=== PATIENT | male | born 1990 | race Caucasian/White ===

== ENCOUNTER 2019-04-10 14:53 | Emergency (ER) | payer BC, SELFPAY ==
[2019-04-10] VITALS (7 sets, daily range): BP systolic 116–133; BP diastolic 64–87; PULSE 76–98; RESP 14–16; TEMP 36.9–37.1; O2SAT 95–98
--- NOTE | 2019-04-10 15:23 | DI.RAD_ITS ---
EXAM: XR CHEST 2V PA LATERAL INDICATION: cough, sob, diminished BS RUL, r/o pneumonia. COMPARISON: No exams were available for comparison TECHNIQUE: 2D digital imaging was performed. FINDINGS: The heart size is normal. The lungs are well inflated and clear. No infiltrate, effusion or pneumo thorax is seen. IMPRESSION: Negative chest x-ray.
--- NOTE | 2019-04-10 15:25 | ED.GENADUL_ITS ---
Discharge Plan Disposition Patient Disposition: HOME Condition: Improving Discharge Details Chief Complaint: SOB Clinical Impression: Shortness of breath, History of asthma Primary Care Provider: Geetha Lowe ED Provider: Anu Vanessa Home Meds and New Rx's Prescriptions: Continued albuterol sulfate [Proventil HFA] 1 PUFF HFA aerosol inhaler 1 - 2 puff Inhalation DIRECTED RF: 0 fluticasone propion-salmeterol [Advair Diskus] 1 EACH blister with device 1 ea Inhalation BID Qty: 1 RF: 0 Discharge Instructions Instructions: Dyspnea (ED) Additional Instructions: Drink plenty fluids get plenty of rest. Use your albuterol inhaler as needed and directed in your Advair as directed. Follow-up with your primary care doctor next week for reevaluation. Return to the emergency department if you develop any worsening or new concerning symptoms. Discharge Data Discharge Physician: Anu Vanessa Medical Decision Making 1515 -- 28-year-old male with history of asthma presents with persistent shortness of breath for the past 2 days as well as cough with chest congestion. Vitals within normal limits. Mild decrease in breath sounds right upper lobe. Age, history presentation not consistent with PE or ACS. Differential diagnosis includes asthma exacerbation, viral syndrome, pneumonia. Will give a DuoNeb, obtain chest x-ray and check a d-dimer and reassess. 1725 --patient denies any relief. Heart rate 70s oxygen saturation 99% on room air. He demonstrates no signs of respiratory distress. Chest x-ray negative. EKG done which is unremarkable. D-dimer negative. Repeat lung exam with clear breath sounds throughout. Patient states he does feel some shortness of breath right now. Discussed also the possibility of stress or anxiety but he denies this. Will give another treatment and reassess. 1920 --patient feels better and is requesting to go home. Discussed with patient at length that this could be possibly a mild asthma exacerbation, URI, or an evolving process that is not yet evident. Patient advised to drink plenty fluids, get plenty of rest, use his albuterol as needed and Advair as directed. He is advised to follow-up with his primary care doctor and return here if worse. Medical Records Medical records reviewed: Yes I reviewed the patient's medical records. Imaging Data Radiologic Study: Radiologist's impression: XR Chest, 2 Views Exam date and time: 04/10/2019 3:25 PM Clinical history: 28 years old, male; Shortness of breath; Patient HX: Diminished bs rul; Additional info: R/O pneumonia TECHNIQUE: Imaging protocol: XR of the chest Views: 2 views. COMPARISON: No relevant prior studies available. FINDINGS: Lungs: No focal areas of consolidation. Pleural space: No pleural effusion or pneumothorax. Heart/Mediastinum: Cardiac and mediastinal silhouettes are unremarkable. Bones/joints: No acute osseus lesion or fracture. IMPRESSION: No acute cardiopulmonary pathology. HPI General Mode of arrival: ambulatory . Date/Time Provider Initiated Documentation: 04/10/19 15:04 . Limitations to Documentation: no limitations . Information obtained by: patient . HPI Narrative: Patient is a 28-year-old male with a history of asthma who presents with shortness of breath for the past 2 days. Patient also admits to cough with chest congestion but denies any sputum production. He denies fever, nausea, vomiting, abdominal pain, chest pain, ear pain, sore throat. Patient denies any recent travel, recent surgery, leg pain or swelling or known sick contacts. He states that he uses Advair twice daily and albuterol as needed for his asthma which usually helps in any case of shortness of breath but states this is not helping at this time. Patient states that at baseline he often become short of breath with eating but states this was slightly worse today. He denies any abdominal pain at any time or difficulty swallowing. Related Data Home Medications Medication Instructions Recorded Confirmed albuterol sulfate [Proventil HFA] 1 - 2 puff INHALATION DIRECTED 12/03/12 04/10/19 fluticasone propion-salmeterol 1 ea INHALATION BID #1 disk.w.dev 12/03/12 04/10/19 [Advair Diskus] Previous Rx's Medication Instructions Recorded fluticasone propion-salmeterol 1 ea INHALATION BID #1 disk.w.dev 12/03/12 [Advair Diskus] Allergies Allergy/AdvReac Type Severity Reaction Status Date / Time cefaclor [From [facility]] Allergy Unknown Unverified 12/03/12 21:22 General Stated Complaint: SOB LASHAWN: 3 Review of Systems Review of Systems ROS Unobtainable: All systems reviewed & are unremarkable except as noted in HPI and below Constitutional Constitutional: Reports as per HPI, Denies chills and Denies fever(s) Eyes Eyes: Denies blurry vision ENT Ears, Nose, Mouth, and Throat: Denies dizziness, Denies sore throat and Denies throat swelling Cardiovascular Cardiovascular: Denies chest pain and Denies dyspnea Respiratory Respiratory: Denies cough and Denies dyspnea Gastrointestinal Gastrointestinal: Denies abdominal pain, Denies diarrhea and Denies vomiting Genitourinary Genitourinary: Denies hematuria and Denies dysuria Musculoskeletal Musculoskeletal: Denies back pain and Denies numbness Integumentary/Breasts Skin/Breast: Denies lesions and Denies rash Neurologic Neurologic: Denies dizziness, Denies focal weakness and Denies numbness Allergic/Immunologic Allergic/Immunologic: Denies throat swelling [facility] Medical History Asthma (Chronic) Surgical History History of hernia repair (Chronic) Social History Smoking/Tobacco Use Status: Never Alcohol Intake: current Alcohol Intake frequency: a few times a month Drug use: Rarely Substance use type: marijuana Do you feel safe at home: Yes Do you feel safe in your relationship?: Yes Exam Const General: cooperative, healthy appearing and no acute distress HENMT Head: normal to inspection Face and sinus: normal facial exam Eyes General: appearance normal, both eyes and all related structures Pupils: PERRL EOM: EOM intact bilaterally Neck Neck: normal visual inspection and No submandibular swelling Lymphatic: no lymphadenopathy noted Chest Chest: normal inspection of the chest and no tenderness Resp Effort & Inspection: normal respiratory effort and able to speak in complete sentences Other: mild decrease in breath sounds right upper lobe. Remainder of lungs clear. No wheezing or rhonchi. Cardio Rate: regular rate Rhythm: regular rhythm GI Inspection: normal to inspection Palpation: soft, not firm, not rigid and nontender Auscultation: normal bowel sounds Skin General skin exam: no rashes or lesions noted Neuro General: alert, awake and oriented x3 Cognition: normal cognition Speech: speech normal Motor: muscle tone normal throughout Sensory Exam: no sensory deficits noted Extrem General: normal to inspection, full ROM, normal capillary refill, no calf tenderness bilaterally and no edema Psych Appearance: grossly normal Mental Status: mental status grossly normal Speech and Movement: speech and movement normal Affect: normal affect Course Vital Signs Vital signs: Vital Signs Temperature 98.8 F 04/10/19 14:59 Pulse 76 04/10/19 14:59 Respiratory Rate 16 04/10/19 14:59 Blood Pressure 133/64 04/10/19 14:59 Pulse Oximetry 98 04/10/19 14:59 Temperature 98.8 F 04/10/19 14:59 Temperature Source Skin 04/10/19 14:59 Pulse 76 04/10/19 14:59 Respiratory Rate 16 04/10/19 14:59 Respiratory Effort Non-Labored 04/10/19 15:03 Blood Pressure 133/64 04/10/19 14:59 Blood Pressure Position Sitting 04/10/19 14:59 Pulse Oximetry 98 04/10/19 14:59 Oxygen Delivery Method Room Air 04/10/19 14:59 Oxygen Flow Rate 0 04/10/19 14:59 Pain Level 0 04/10/19 14:59
[2019-04-10] MEDS: Albuterol/Ipratropium 3 ML UPD VIAL UPD (15:59)
[2019-04-10 16:31] LABS: D-Dimer 92 ng/mlFEU (<500)
--- NOTE | 2019-04-10 16:50 | DI.VRAD_ITS ---
PROCEDURE INFORMATION: Exam: XR Chest, 2 Views Exam date and time: 04/10/2019 3:25 PM Clinical history: 28 years old, male; Shortness of breath; Patient HX: Diminished bs rul; Additional info: R/O pneumonia TECHNIQUE: Imaging protocol: XR of the chest Views: 2 views. COMPARISON: No relevant prior studies available. FINDINGS: Lungs: No focal areas of consolidation. Pleural space: No pleural effusion or pneumothorax. Heart/Mediastinum: Cardiac and mediastinal silhouettes are unremarkable. Bones/joints: No acute osseus lesion or fracture. IMPRESSION: No acute cardiopulmonary pathology. Dictated and Authenticated by: Jeison Jewell MD. Ordering:JONG Brennan MD
[2019-04-10] MEDS: Albuterol 2.5 MG/3 ML INH SOLN VIAL UPD (17:55)
== END 2019-04-10 19:55 | disposition home or self-care (01) ==
PROVIDERS: Emergency Provider Physician Assistant; PCP Nurse Practitioner Family
DX: J45.901 Unspecified asthma with (acute) exacerbation (principal); R06.02 Shortness of breath
CPT/HCPCS: 93005; 94640; 99284; 71046; 85379; 93010; J7613; J7620

== ENCOUNTER 2019-09-12 13:22 | Outpatient (REF) | payer BC, SELFPAY ==
[2019-09-12 20:36] LABS: TSH (W/Ref FT4) 0.46 uIU/mL (0.36-3.74)
== END 2019-09-12 13:42 ==
LOC: NCHCN 13:22
PROVIDERS: PCP Nurse Practitioner Family; Visit Provider Nurse Practitioner Family
DX: R35.0 Frequency of micturition (principal); J45.30 Mild persistent asthma, uncomplicated
CPT/HCPCS: 84443; 87086

== ENCOUNTER 2019-09-19 08:53 | Outpatient (REF) | payer BC, SELFPAY | END 2019-09-19 09:13 | LOC: NCHCN 08:53 | PROVIDERS: PCP Nurse Practitioner Family; Visit Provider Nurse Practitioner Family | DX: R35.0 Frequency of micturition (principal) | CPT/HCPCS: 87086 ==

== ENCOUNTER 2019-11-14 09:28 | Outpatient (CLI) | payer BC, SELFPAY ==
[2019-11-15 21:03] LABS: COVID-19 RT-PCR UVMMC Result Negative (Negative)
== END 2019-11-14 09:48 ==
PROVIDERS: Surgery; PCP Nurse Practitioner Family; Visit Provider Nurse Practitioner Family
DX: Z11.59 Encounter for screening for other viral diseases (principal)
CPT/HCPCS: U0003

== ENCOUNTER 2019-12-14 08:16 | Outpatient (REF) | payer BC, SELFPAY ==
[2019-12-18 16:44] LABS: Chlamydia Result Negative (Negative); GC Result Negative (Negative)
== END 2019-12-14 08:36 ==
LOC: NCHCN 08:16
PROVIDERS: PCP Nurse Practitioner Family; Visit Provider Nurse Practitioner Family
DX: R35.0 Frequency of micturition (principal); Z11.3 Encounter for screening for infections with a predominantly sexual mode of transmission
CPT/HCPCS: 87491; 87591

== ENCOUNTER 2020-01-08 07:16 | Outpatient (CLI) | payer BC, SELFPAY ==
[2020-01-10 17:23] LABS: COVID-19 RT-PCR Result NEGATIVE (Negative)
== END 2020-01-08 07:36 ==
PROVIDERS: PCP Nurse Practitioner Family; Visit Provider Surgery
DX: Z11.59 Encounter for screening for other viral diseases (principal)
CPT/HCPCS: U0003

== ENCOUNTER 2020-01-11 08:05 | Day surgery (SDC) | payer BC, SELFPAY ==
--- NOTE | 2020-01-10 23:27 | W.PM.HP.N ---
Date of service: 01/11/20 Time of Service: 09:00 Assessment and Plan Assessment and plan (1) Chronic GERD: Status: Acute Assessment and plan: Risks: Informed consent is obtained for the procedural (explained in simple layman's terms that the pt and/or family could understand) explaining risks vs benefits and alternatives to the procedure and consequences if we do not do the procedure and need/rational for the procedure. Risks include but are not limited to:bleeding, infection, perforation of colon. This would necessitate emergency surgery to repair the damage w/ possible ostomy; and other associated complications w/ the required surgery. Also complications of anesthesia including aspiration,CA/CVA/. (2) Asthma: Status: Chronic History of Present Illness Consults Consult date: 01/11/20 Narrative: t has what he describes as a tightness in his chest. thinks it started in feb last year. Tends to happen after he eats. doesn't correlate w/ any certain foods. doesn't eat spicy foods. lying down doens't seem to bother him. feels like a burning. when it is going on- feels like he needs to clear his throat. denies wet burps. belching+. sometimes feels bloated no abdominal pain. bowels are reagula. pt goes twice a dya. this is nl for him coffee- none. soda- couple times a week. smoker- no. etoh- once/week. nsaids ibuprofen couple times a week. occ has blood when he wipes. someimes has blood in saliva. has asthma and lots problems w/ allergies. pt is on both pepcid and omeprazole. has been on pepcid x 2m and omeprazole x1m. He thinks its a little better on the meds- maybe 30% better. no signif dental issues. doesn't wake him up at night. no choking. occ pain or diff swallowing- feels constricted. Did have some wt loss- but has gained it back PShx hernia. anethsia- no problems. Patient has been having problems with heartburn and poorly controlled asthma. He did see pulmonary and they thought it was due to an extrapulmonary source. Patient is here today for an EGD. Patient was seen and examined today on 723. He was started on 20 mg omeprazole once a day and Pepcid by his PCP. He thinks his symptoms are 80% controlled. He still has some tightness in his throat. He is a non-smoker. He did see pulmonary and his inhalers were adjusted. He thinks it has helped his asthma somewhat. He has not been in the emergency room. He has not started any other medications. Today he denies any chest pain or shortness of breath. He has no fever or chills. He has no productive cough. Is not been exposed to Cobin that he is aware of. We discussed the procedure today and risks versus benefits and he agrees to proceed. He is asked for risk for anesthesia. Review of Systems All systems reviewed & are unremarkable except as noted in HPI and below PFSH Medical History Allergic rhinitis (Acute) Asthma (Chronic) Belching (Acute) Bleeding from the nose (Acute) Pt. states this is related to the frequent belching/discomfort. Pt. states he recently had a PFT, which yielded normal results. Chest discomfort (Acute) H/O urinary frequency (Acute) Hearing loss (Acute) Pt. denies this dx. Pt. reported unusal occasional redness and warmth on his ears but never affected his hearing Heartburn (Acute) Preop testing (Acute) Surgical History History of hernia repair (Chronic) Social History Smoking/Tobacco Use Status: Never Alcohol Intake: current Alcohol Intake frequency: a few times a month Alcohol type: beer and hard liquor Drug use: Rarely Substance use type: marijuana Current gender identity: male Do you feel safe at home: Yes Do you feel safe in your relationship?: Yes Meds Home Medications and Allergies Home Medications Medication Instructions Recorded Confirmed Type albuterol sulfate [Proventil HFA] 1 - 2 puff INHALATION DIRECTED 12/03/12 01/09/20 History cetirizine 10 mg tablet 10 mg PO DAILY 10/18/19 01/11/20 History famotidine 20 mg tablet 20 mg PO DAILY 10/18/19 01/11/20 History fluticasone 250 mcg-salmeterol 50 1 inh IH BID 10/18/19 01/11/20 History mcg/dose blistr powdr for inhalation montelukast 10 mg tablet 10 mg PO DAILY PRN 10/18/19 01/11/20 History tiotropium bromide 18 mcg capsule 1 cap IH DAILY 10/18/19 11/10/19 History with inhalation device fluticasone propionate 50 1 spray JUAN BID 10/30/19 01/09/20 History mcg/actuation nasal spray,suspension omeprazole 20 mg capsule,delayed 20 mg PO DAILY 10/30/19 01/11/20 History release sertraline 25 mg tablet 25 mg PO DAILY 10/30/19 01/11/20 History fluticasone furoate 27.5 1 spray JUAN DAILY 11/09/19 01/09/20 History mcg/actuation nasal spray,suspension Allergies Allergy/AdvReac Type Severity Reaction Status Date / Time cefaclor [From [facility]] Allergy Unknown Pt unsure Unverified 01/11/20 08:19 Exam Const General: cooperative, healthy appearing, comfortable, no acute distress, well developed and well groomed Nutritional Appearance: average body habitus and well nourished Orientation: alert, awake and oriented x3 HENMT Head: normal to inspection, normocephalic and atraumatic Ears: hearing grossly normal bilaterally and external ears normal General nose exam: external nose normal Face and sinus: normal facial exam and sinuses nontender Mouth: oral mucosae normal, lip normal, tongue normal and moist mucous membranes Teeth and gingiva: dentition normal Eyes General: appearance normal, both eyes and all related structures Conjunctivae: conjunctivae normal Sclera: sclerae normal Pupils: PERRL Neck Neck: normal visual inspection and full ROM Chest Chest: normal inspection of the chest Resp Effort & Inspection: normal respiratory effort, able to speak in complete sentences, no cough, no nasal flaring, not tachypneic and no use of accessory muscles Auscultation: clear to auscultation bilaterally, no rales, no rhonchi and no wheezes Cardio Jugular venous pressure: no JVD Rate: regular rate Rhythm: regular rhythm GI Inspection: normal to inspection, no edema and non-distended Palpation: soft, no masses, nontender and No ascites Auscultation: normal bowel sounds Skin General skin exam: no rashes or lesions noted Trauma: no lacerations or abrasions Neuro General: patient alert, patient oriented x3, oriented, gait normal, moves all extremities, no focal motor deficits and CN's II-XI intact bilaterally Cognition: normal cognition Speech: speech normal Gait: normal gait Motor: muscle tone normal throughout Extrem General: normal to inspection, full ROM and no clubbing, cyanosis or edema Psych Appearance: grossly normal and well kempt Mental Status: mental status grossly normal Speech and Movement: speech and movement normal Affect: normal affect COVID-19 Screening Have you,or household,traveled outside [place] in last 14 days?: No Had IN PERSON contact w/suspected or confirmed C-19 person: No
[2020-01-11 08:15] VITALS: BP 134/74; PULSE 77; RESP 16; TEMP 36.6; O2SAT 100
[2020-01-11] MEDS: Lactated Ringers 1,000 ML 100 ML IV (08:39)
--- NOTE | 2020-01-11 09:56 | STOM_PTH ---
PATIENT: Sacha Davies LOC: [facility] U#:[id number] AGE/SX: 29/M ROOM: RE01/11/[address]: Leigh Robles : 1990 BED: DIS: 01/11/2020 SPEC #: [id number] RECD: 01/11/20 12:40 STATUS: JEF RE #: [id number] SELWYN: 01/11/20 09:[address]: Leigh Robles DEPT: Surgical Specimen RECD BY: Dee Dee Jhaveri ENTERED: 01/11/20 12:43 SP TYPE: STOMACH OTHR DR: Geetha Lowe Tissues: 1 - BIOPSY BOWEL 2 - STOMACH BIOPSY 3 - STOMACH BIOPSY 4 - ESOPHAGUS BIOPSY 5 - ESOPHAGUS BIOPSY Procedures: GROSS AND MICRO LEVEL 4 Comments: [id number]
--- NOTE | 2020-01-11 10:02 | PDOC.DSDIS_ITS ---
Discharge Plan Disposition Patient Disposition: HOME Condition: Good Discharge Details Reason For Visit: stomach scope Attending Provider: Leigh Robles Primary Care Provider: Geetha Lowe Home Meds and New Rx's Prescriptions: New pantoprazole [Protonix] 40 mg tablet,delayed release (DR/EC) 40 mg PO DAILY Qty: 30 RF: 12 Continued fluticasone propionate [Flonase Allergy Relief] 50 mcg/actuation spray,suspen catalino 1 spray JUAN BID RF: 0 sertraline 25 mg tablet 25 mg PO DAILY RF: 0 Flonase Sensimist 27.5 mcg/actuation spray,suspension 1 spray JUAN DAILY RF: 0 cetirizine [Zyrtec] 10 mg tablet 10 mg PO DAILY RF: 0 Spiriva with HandiHaler 18 mcg capsule, w/inhalation device 1 cap IH DAILY RF: 0 montelukast [Singulair] 10 mg tablet 10 mg PO DAILY PRNRF: 0 fluticasone propion-salmeterol [Advair Diskus] 250-50 mcg/dose blister with device 1 inh IH BID RF: 0 albuterol sulfate [Proventil HFA] 1 PUFF HFA aerosol inhaler 1 - 2 puff Inhalation DIRECTED RF: 0 Discontinued omeprazole 20 mg capsule,delayed release(DR/EC) 20 mg PO DAILY RF: 0 famotidine 20 mg tablet 20 mg PO DAILY RF: 0 Discharge Instructions Additional Instructions: Findings: relatively normal- pd biopsy results Continue with lifestyle modifications: no alcohol, tobacco products, Aspirin or NSAID's (ibuprofen, Motrin, Naprosyn, aleve, etc), soda pop/any carbonated beverages, caffeine (including tea & chocolate), and acidic foods, (tomatoes, citrus, onions, peppermints) spicy foods. Do not lie down for 30 minutes after eating, and do not eat 2 hours prior to bedtime. Avoid wearing tight fitting clothing/ belts stop omprazole/pepcid. start protonix Follow up:3-4 wks Please call if you develop: fevers >101.5 Nausea or Vomiting Abdominal pain that is not transient DAY SURGERY UNIT POST COLONOSCOPY INSTRUCTIONS 1. Because there will be medication in your system for the next 24 hours, you may feel a little sleepy. Your coordination will be affected. Therefore: a. Do not drive or operate dangerous equipment for 24 hours. b. Do not drink alcohol beverages for 24 hours (not even beer). c. Plan to go home and rest for the day. 2. Generally there are no restrictions on your activity after a day or so has gone by, but you may feel a bit fatigued for a few days. 3 After you arrive home you may have a light meal and return to a normal diet as you can tolerate it without feeling sick to your stomach. 4. After surgery, you may feel pain or discomfort. This should be only transient , but if it persists please contact your doctor. 5. If there are any questions regarding the findings of your procedure, please feel free to contact your doctor. 6. If you are unable to contact your doctor with a problem, contact the hospital at [phone]. 7. Continue all your regular medications unless directed otherwise. I understand the above instructions and have no questions. Signature of Patient or Responsible Adult Escort Date/Time Name of Responsible Adult Escort Signature of Nurse Date/Time Activity:: no liting over 20 #'s or strenuous activity x 24 hrs. Diet:: Small light meals x24 hours Discharge Orders Discharge Orders: Discharge Order (Routine); Ordered 01/11/20 Ordered By: Leigh Robles DS: Diagnosis Discharge Diagnosis (1) Chronic GERD: Status: Acute (2) Asthma: Status: Chronic
[2020-01-11 10:40] VITALS: BP 124/78; PULSE 72; RESP 16; TEMP 36.4; O2SAT 99
--- NOTE | 2020-01-17 12:25 | W.PM.ENDDOP ---
Date of service: 01/17/20 Time of Service: 12:25 Endoscopy Report DATE OF PROCEDURE: 01/17/20 PRE-OP DIAGNOSIS: possible reflux contributing to asthma POST-OP DIAGNOSIS: same PROCEDURE: egd w/ bx. SURGEON: Leigh Robles ANESTHESIA: GETA ESTIMATED BLOOD LOSS: 1 COMPLICATIONS: None DISPOSITION: same day PROCEDURE DESCRIPTION: After informed consent was obtained the patient was take to the procedure room and placed in a supine position. Monitors were applied and a time out was done. The patients name, date of , procedure type, allergies to medications and metal in their body was reviewed. A bite block was placed and the patient was sedated. Once sedated and comfortable the gastroscope was advanced through the oropharynx which was grossly normal into the esophagus. The proximal and mid-esophagus were nl. In the distal esophagus there was nl noted. The scope was advanced into the stomach and through the pylorus into the 3rd portion of the duodenum. The duodenum was noted to be nl. Biopsies were done duodenal bulb, antrum, greater., GE junction, distal esophagus. All specimens are retrieved and no bleeding is noted. This is essentially a normal exam.. The scope was retracted back into the stomach and biopsies were done to rule out H. pylori. There were no ulcers. The scope was retroflexed. The cardia and fundus were noted to be normal. There is no hiatal hernia noted. The scope was retracted back into the esophagus and biopsies were done of the GE junction to rule out Hernadez's. The Z line was regular. The scope was removed and the patient was woken up and taken back to [facility] in stable condition. Follow up:
== END 2020-01-11 11:10 | disposition home or self-care (01) ==
PROVIDERS: PCP Nurse Practitioner Family; Visit Provider Surgery
PROC: 0DJ68ZZ Inspection of Stomach, Via Natural or Artificial Opening Endoscopic (ICD-10-PCS; CPT 43235; principal; 2020-01-11 09:30)
DX: J45.909 Unspecified asthma, uncomplicated; K31.89 Other diseases of stomach and duodenum; K21.0 Gastro-esophageal reflux disease with esophagitis
CPT/HCPCS: 43239; 88305; NC; J2001

== ENCOUNTER 2020-03-25 07:32 | Outpatient (CLI) | payer BC, SELFPAY ==
[2020-03-27 02:55] LABS: Patient Race White; SARS-CoV-2 RNA Undetected (Undetected); SARS-CoV-2 Specimen Source Nasopharynx
== END 2020-03-25 07:52 ==
PROVIDERS: PCP Nurse Practitioner Family; Visit Provider Family Medicine
DX: Z20.828 Contact with and (suspected) exposure to other viral communicable diseases (principal)
CPT/HCPCS: U0003

== ENCOUNTER 2020-11-04 16:19 | Outpatient (REF) | payer BC, SELFPAY ==
[2020-11-04 22:00] LABS: Anion Gap 10.5 mmol/L (3-11); BUN 13 mg/dL (7-18); CO2 27.5 mmol/L (21.0-32.0); CREATININE 0.8 mg/dL (0.70-1.30); Calcium 9.4 mg/dL (8.5-10.1); Chloride 104 mmol/L (98-107); Glucose 89 mg/dL (74-106); Magnesium 1.8 mg/dL (1.8-2.4); Sodium 142 mmol/L (136-145); TSH (W/Ref FT4) 0.81 uIU/mL (0.36-3.74); Vitamin B12 270 pg/mL (193-986)
== END 2020-11-04 16:20 | disposition home or self-care (01) ==
LOC: NCHCN 16:19
PROVIDERS: PCP Nurse Practitioner Family; Visit Provider Nurse Practitioner Family
DX: K30 Functional dyspepsia (principal); R61 Generalized hyperhidrosis; F41.8 Other specified anxiety disorders; F60.5 Obsessive-compulsive personality disorder; J30.9 Allergic rhinitis, unspecified; J45.30 Mild persistent asthma, uncomplicated
CPT/HCPCS: 80048; 82607; 83735; 84443

== ENCOUNTER 2021-04-28 20:00 | Outpatient (REF) | payer BC, SELFPAY | END 2021-04-28 20:01 | disposition home or self-care (01) | LOC: LBN 20:00 | PROVIDERS: PCP Nurse Practitioner Family; Visit Provider Urology | DX: Z31.41 Encounter for fertility testing (principal) | CPT/HCPCS: 89240; 89310 ==

== ENCOUNTER 2021-06-03 15:04 | Outpatient (REF) | payer BC, SELFPAY ==
[2021-06-05 12:45] LABS: Acrosom Defect 4.5 %; Appearance Normal; Container Type 50 mL Conical; Head Shape Abnormal 24.5 %; Midpiece Defect 21.5 %; Motile/Ejaculate 102.8 x10(6) (>=9.0); Motile/mL 41.1 x10(6) (>=6.0); Motility 59 % (>=40); Semen Volume 2.5 mL (>=1.5); Sperm/mL 69.7 x10(6) (>=15.0); Study Type Semen; Tail Defect 41.5 %
== END 2021-06-03 15:05 | disposition home or self-care (01) ==
LOC: LBN 15:04
PROVIDERS: PCP Nurse Practitioner Family; Visit Provider Obstetrics & Gynecology
DX: Z31.41 Encounter for fertility testing (principal)
CPT/HCPCS: 89240; 89310

== ENCOUNTER 2021-11-06 10:38 | Outpatient (REF) | payer BC, SELFPAY ==
[2021-11-07 11:35] LABS: COVID-19 RT-PCR UVMMC Result Negative (Negative)
== END 2021-11-06 10:39 | disposition home or self-care (01) ==
LOC: LBN 10:38
PROVIDERS: PCP Nurse Practitioner Family; Visit Provider Physician Assistant Medical
DX: J02.9 Acute pharyngitis, unspecified (principal); Z20.822 Contact with and (suspected) exposure to COVID-19
CPT/HCPCS: U0003; 87070

== ENCOUNTER 2023-12-28 15:47 | Outpatient (REF) | payer BC, SELFPAY ==
[2023-12-28 21:43] LABS: Hemoglobin A1C 5.4 % (<5.7)
[2023-12-28 21:44] LABS: Calculated LDL 99 mg/dL (<100); Cholesterol 197 mg/dL (<200); HDL Cholesterol 59 mg/dL (40-60); Triglyceride 198 mg/dL (<150)
== END 2023-12-28 15:48 | disposition home or self-care (01) ==
LOC: NCHCN 15:47
PROVIDERS: PCP Nurse Practitioner Family; Visit Provider Nurse Practitioner Family
DX: E66.9 Obesity, unspecified (principal)
CPT/HCPCS: 80061; 83036

== ENCOUNTER 2024-02-14 18:14 | Outpatient (REF) | payer BC, SELFPAY ==
--- NOTE | 2024-02-14 13:52 | SKI_PTH ---
PATIENT: Sacha Davies LOC: [facility]#:[id number] AGE/SX: 33/M ROOM: RE02/14/[address]: Geetha Lowe : 1990 BED: DIS: 02/14/2024 SPEC #: [id number] RECD: 02/15/24 12:33 STATUS: JEF REAdi #: [id number] SELWYN: 02/14/24 13:[address]: Geetha Lowe DEPT: Surgical Specimen RECD BY: Dee Dee Jhaveri Tissues: 1 - SKIN BIOPSY(SHAVE/PUNCH) Procedures: SKIN LEVEL 4 Comments: [id number]
--- OUTSIDE RECORDS SUMMARY | 2024-02-14 18:19 | XMS_ITS | Encounter Summary ---
Author Organization [facility] Address [address] [place] [address] Care Team Providers Care Medical Assistant Internal Medicine Name Role Phone Gilberto Jacome MD Primary Care Provider [phone] Geetha Lowe APRN Primary Care Provider [phone] Encounter Details Date Type Department Care Team (Late Contact Info) Description 11/14/2019 Lab Requisition [facility] Pathology & Laboratory Medicine - [facility] [address], [place] [address] Outr Resulting Lab, Provider Social History Tobacco Use Types Packs/Day Years Used Date Smoking Tobacco: Never Assessed Sex and Gender Information Value Date Recorded Sex Assigned at Not on file Gender Identity Male 04/11/2021 18:27 EDT Sexual Orientation Not on file documented as of this encounter Plan of Treatment Not on file documented as of this encounter Procedures Procedure Name Priority Date/Time Associated Diagnosis Comments ZZCOVID-19 TEST [facility] LAB PCR Today 11/14/2019 11:32 EDT COVID-19 TESTING Routine 11/14/2019 11:3 2 EDT documented in this encounter Results * COVID-19 TEST [facility] LAB PCR (11/14/2019 11:32 EDT) Swab ENTIRE NASOPHARYNX / Unknown 11/14/2019 11:32 EDT 11/14/2019 15:33 EDT Provider Outr Resulting Lab MICROBIOLOGY - GENERAL ORDERABLES Performing Organization Address City/[facility] Co de Phone Number [facility] [address] [place] [address] * COVID-19 TESTING (11/14/2019 11:32 EDT) COVID-19 rt-PCR Result Negative Negative 11/15/2019 20:58 EDT [facility] Comment: Negative results do not preclude 2019-nCoV infection and should not be used as the sole basis for treatment or other patient management decisions. Negative results must be combined with clinical observations, patient history, and epidemiological information. This test was developed and its performance characteristics determined by [facility]. It has not been cleared or approved by the US Food and Drug Administration. FDA does not require this test to go through premarket FDA review. This test is used for clinical purposes. It should not be regarded as investigational or for research. This laboratory is certified under the Clinical Laboratory Improvement Amendments (CLIA) as qualified to perform high complexity clinical laboratory testing. This test is based on the CDC COVID-19 Emergency Use Authorization (EUA) assay, with minor modification as defined by the FDA Performed on the [employer] 7500 Fast. Performing Lab AB [address] [facility] Lab 11/15/2019 20:58 EDT [facility] Swab ENTIRE NASOPHARYNX / Unknown 11/14/2019 11:32 EDT 11/14/2019 15:33 EDT Provider Outr Resulting Lab MICROBIOLOGY - GENERAL ORDERABLES Performing Organization Address City/[facility] Co de Phone Number [facility] [address] [place] [address] documented in this encounter Visit Diagnoses Not on filedocumented in this encounter Care Teams Medical Assistant Internal Medicine Relationship Specialty Start Date End Date Gilberto Jacome MD [address] [place] [address] PCP - General 02/25/11 04/10/21 Geetha Lowe APRN [address] [place] [id number] PCP - General 04/11/21 documented as of this encounter
--- OUTSIDE RECORDS SUMMARY | 2024-02-14 18:19 | XMS_ITS | Encounter Summary ---
Author Organization [facility] Address [address] [place] [address] Care Team Providers Care Sustain Engineer Name Role Phone None, Provider Primary Care Provider Unavailabl e Reason for Visit * Reason Comments Epistaxis Pt to the emergency department with nosebleed. States that this started approx 45 minutes prior to arrival. States that he noted a sharp headache just prior to onset of headache. Encounter Details Date Type Department Care Team ([facility] Contact Info) Description 10/03/2010 14:36 EDT - 10/03/2010 15:22 EDT Emergency [facility] Emergency Department - Main [address] [address] Emergency, MD Trace Bleeding nose Discharge Disposition: Home or Self Care Social History Tobacco Use Types Packs/Day Years Used Date Smoking Tobacco: Former Alcohol Use Standard Drinks/Week Comments Yes 0 (1 standard drink = 0.6 oz pur e alcohol) Sex and Gender Information Value Date Recorded Sex Assigned at Not on file Gender Identity Male 04/11/2021 18:27 EDT Sexual Orientation Not on file documented as of this encounter Last Filed Vital Signs Vital Sign Reading Time Taken Comments Blood Pressure 117/52 10/03/2010 1445 EDT Pulse - - Temperature 35.5 ??C (95.9 ??F) 10/03/2010 1444 EDT Respiratory Rate 16 10/03/2010 1444 EDT Oxygen Saturation 99% 10/03/2010 1444 EDT Inhaled Oxygen Concentration - - Weight 59 kg (130 lb) 10/03/2010 1444 EDT Height 165.1 cm (5' 5) 10/03/2010 1444 EDT Body Mass Index 21.63 10/03/2010 1444 EDT documented in this encounter Discharge Instructions * Attachments The following attachments cannot be sent through Care Everywhere. * NOSEBLEEDS: AFTER YOUR VISIT TO THE EMERGENCY ROOM ([facility]) documented in this encounter Medications at Time of Discharge Medication Sig Dispensed Refills Start Date End Date fluticasone-salmeterol (ADVAIR) 100-50 mcg/Dose diskus inhaler Inhale 1 Puff as directed every 12 hours. fexofenadine (WENDI) 60 mg tablet Take 60 mg by mouth daily. 02/09/2011 documented as of this encounter Discharge Disposition Disposition Code Departure Means Destination Home or Self Care Walk-out Home documented in this encounter ED Notes * Joaquin Cason Jr., ROB - 10/03/2010 1515 EDT DOS: 10/03/2010 Chief Complaint Patient presents with ??? Epistaxis Pt to the emergency department with nosebleed. States that this started approx 45 minutes prior to arrival. States that he noted a sharp headache just prior to onset of headache. The patient is a 20 y.o. male who presents today with Epistaxis HPI Comments: Patient here for a resolved nose bleed, is concerned because it bled for approximately 45 minutes, he also states he has pain in his right jaw and he opens and closes his mouth, this started 3 days prior The history is provided by the patient. Epistaxis This is a new problem. The current episode started less than 1 hour ago. The problem occurs constantly. The problem has been resolved. The bleeding has been from the left nare. He has tried applying pressure for the symptoms. The treatment provided significant relief. His past medical history is significant for colds. His past medical history does not include bleeding disorder, sinus problems, allergies, nose-picking or frequent nosebleeds. Review of Systems Constitutional: Negative for fever, chills and fatigue. HENT: Positive for nosebleeds, rhinorrhea, sneezing and postnasal drip. Negative for facial swelling, neck pain, dental problem and sinus pressure. Eyes: Negative for photophobia and visual disturbance. Respiratory: Negative for cough, chest tightness and shortness of breath. Cardiovascular: Negative for chest pain. Gastrointestinal: Negative for nausea, vomiting, abdominal pain and diarrhea. Musculoskeletal: Negative for back pain and joint swelling. Skin: Negative for color change. Neurological: Negative for dizziness and numbness. Psychiatric/Behavioral: Negative for behavioral problems. Past Medical History Diagnosis Date ??? Asthma History reviewed. No pertinent past surgical history. Allergies Allergen Reactions ??? Ceclor (Cefaclor) History Substance Use Topics ??? Smoking status: Former Smoker ??? Smokeless tobacco: Not on file ??? Alcohol Use: Yes History reviewed. No pertinent family history. Vital Signs Temp: 35.5 ??C (95.9 ??F) Temp src: Tympanic Heart Rate: 82 BPM Resp: 16 SpO2: 99 % SpCO: 0 % BP: 117/52 mmHg BP Device: BP Machine Patient Position: Sitting BP Cuff Location: Right arm O2 Device: None (Room air) Physical Exam Nursing note and vitals reviewed. Constitutional: He appears well-developed and well-nourished. HENT: Head: Normocephalic and atraumatic. Right Ear: External ear normal. Left Ear: External ear normal. Nose: Nose normal. Bilateral there is swelling to the nasal turbinates, no bleeding seen, Eyes: Conjunctivae are normal. Pupils are equal, round, and reactive to light. Right eye exhibits no discharge. Left eye exhibits no discharge. Neck: Normal range of motion. Neck supple. No tracheal deviation present. Cardiovascular: Normal rate, regular rhythm and normal heart sounds. Pulmonary/Chest: Effort normal and breath sounds normal. No respiratory distress. Abdominal: Soft. No tenderness. Musculoskeletal: Normal range of motion. Neurological: He is alert. He has normal strength. He is not disoriented. No sensory deficit. Skin: Skin is warm and dry. No rash noted. No areas of ecchymosis Psychiatric: He has a normal mood and affect. Radiology orders: None Procedures ED Course: A medical screening exam was performed. Disposition: Discharged patient not bleeding prior to discharge, patient's symptoms of right TMJ pain did not appear to be a cause of the bleeding, patient has had URI symptoms with runny nose and sneezing for last weekend, DC home The patient's pain was managed to an adequate level weighing risk vs. benefit of further medications. Upon departure from the Emergency Department, the patient's pain was 0 on a zero to ten scale. Condition at departure from the Emergency Department: Improved Discharge Prescriptions New Prescriptions No Discharge Prescriptions for this patient MDM 1. Bleeding nose (784.7B) PCP: NO PCP Cesar Del Castillo 10/03/2010 15:19 * Delmi Monroy RN - 10/03/2010 1502 EDT Brought back to ED 2 room 40 for eval. No active bleeding. documented in this encounter Miscellaneous Notes * Scanned Note-Null - Inpatient, Physician - 10/03/2010 0000 EDT documented in this encounter Plan of Treatment Not on file documented as of this encounter Visit Diagnoses Diagnosis Bleeding nose Epistaxis documented in this encounter Care Teams Sustain Engineer Relationship Specialty Start Date End Date None, Provider PCP - General 05/30/09 02/08/11 documented as of this encounter
--- OUTSIDE RECORDS SUMMARY | 2024-02-14 18:19 | XMS_ITS | Clinical Summary ---
Author Organization [facility] Address [facility] [place] [address] Care Team Providers Care Contact Lens Blocker Name Role Phone Geetha Lowe APRN Primary Care Provider [phone] Allergies Active Allergy Reactions Criticality Noted Date Comments Cefaclor 03/07/2015 Medications Medication Sig Dispensed Refills Start Date End Date Status ADVAIR DISKUS 250-50 mcg/dose Disk with Device inhale 1 dose by mouth twice a day 1 09/02/2018 Active loratadine (CLARITIN) 10 mg Tablet Take 1-3 tablets by mouth every day for itching/hives 90 tablet 2 10/11/2018 Active Active Problems Problem Noted Date Diagnosed Date Tinea pedis of both feet 03/07/2015 Tinea unguium 03/07/2015 Social History Tobacco Use Types Packs/Day Years Used Date Smoking Tobacco: Never Smokeless Tobacco: Never Sex and Gender Information Value Date Recorded Sex Assigned at Not on file Gender Identity Not on file Sexual Orientation Not on file Plan of Treatment Health Maintenance Due Date Last Done Comments HIV screen 2008 Hepatitis C Screening 2008 Hepatitis B vaccine (0-59 yrs) (1) 2009 Tdap adult 2009 Tetanus vaccine 2009 Covid-19 Vaccine (2022-24 season) 2023 Influenza (Flu) vaccine (1 o f 1 - Influenza standard series) 02/20/2024 Care Teams Contact Lens Blocker Relationship Specialty Start Date End Date Geetha Lowe APRN [address] [place], [place] [id number] PCP - General 10/16/14
--- OUTSIDE RECORDS SUMMARY | 2024-02-14 18:19 | XMS_ITS | Encounter Summary ---
Author Organization [facility] Address [address] [place] [address] Care Team Providers Care Product Marketing Analyst Name Role Phone Geetha Lowe ROB Primary Care Provider [phone] Encounter Details Date Type Department Care Team ([facility] st Contact Info) Description 04/11/2021 Prep for Procedure [facility] Infectious Disease - [address] [id number] Yesica Elizabeth MD [address] [facility], [address] [place] [address] Social History Tobacco Use Types Packs/Day Years Used Date Smoking Tobacco: Never Smokeless Tobacco: Never Alcohol Use Standard Drinks/Week Comments Yes 0.8 (1 standard drink = 0.6 oz p ure alcohol) Interpersonal Safety Answer Date Record ed Physically Hurt Never 02/04/2020 Verbally Threaten Not on file 02/04/2020 Sex and Gender Information Value Date Recorded Sex Assigned at Not on file Gender Identity Male 04/11/2021 18:27 EDT Sexual Orientation Not on file documented as of this encounter H&P Notes * Yesica Elizabeth MD - 04/11/2021 1236 EDT I have been asked to order sars-cov-2 monoclonal antibodies on behalf of the patient's PCP as the PCP does not have infusion privileges at [facility]. I am trusting that the patient has a positive test orhigh risk exposure as defined in the EUA and high risk feature concerning for progression to hospitalization from COVID-19. I am trusting that the PCP has reviewed the EUA factsheet with the patient. Yesica Elizabeth MD 04/11/2021 12:36 documented in this encounter Plan of Treatment Not on file documented as of this encounter Visit Diagnoses Not on filedocumented in this encounter Care Teams Product Marketing Analyst Relationship Specialty Start Date End Date Geetha Lowe, ROB [address] [place] [address] PCP - General 04/11/21 documented as of this encounter
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
--- OUTSIDE RECORDS SUMMARY | 2024-02-14 18:19 | XMS_ITS | Encounter Summary ---
Author Organization [facility] Address [address] [place] [address] Care Team Providers Care Breakfast Host Name Role Phone Geetha Lowe APRN Primary Care Provider [phone] Reason for Referral * Prior Authorization (See Order Priority) - Authorization Not Required Specialty Diagnoses / Procedures Referred By Aura mesa Referred To Contact Infusion Therapy Diagnoses Yesica Goodwin MD [address] [facility], [address] [place] [address] [facility] [address] [place] [address] Referral ID Status Reason Start Date Expiration Date Visits Requested Visits Authorized [id number] Authorization Not Required Specialty Services Required 04/11/20 21 1 1 Question Answer Is this appt for transfusion, medication, test or injection? Infusion How many infusions need to be ordered for appt? 1 Infusion Name Other Please specify: MAB Infusion Dose 1200 mg What is the infusion frequency? once Is this the first dose of infusion(s)? Yes Are labs to be obtained during the appt? No Does this have a lab dependency? This patient is not lab dependent Are preliminary tests complete (like MRI)? No Have orders been place for this appt? (i.e.: Blood Transfusion Order Set, Therapy Plan, Lab Orders, Supportive Plan, Etc) Yes Encounter Details Date Type Department Care Team (Late st Contact Info) Description 04/11/2021 Orders Only [facility] [address] [place] [address] Marcie Bland, RN [address] [place] [address] COVID (Primary Dx) Social History Tobacco Use Types Packs/Day Years [...] as of this encounter Plan of Treatment Scheduled Referrals Name Type Priority Associated Diagnoses Orde r Schedule AMB CONS/FOLLOW UP SHEP 4 INFUSIONS Outpatient Referral Urgent Covid Expected: 04/13/2021 (Approximate), Expires: 04/11/2022 documented as of this encounter Visit Diagnoses Diagnosis COVID- Primary documented in this encounter Care Teams Breakfast Host Relationship Specialty Start Date End Date Geetha Lowe APRN [address] [place] [address] PCP - General 04/11/21 documented as of this encounter
--- OUTSIDE RECORDS SUMMARY | 2024-02-14 18:19 | XMS_ITS | Encounter Summary ---
Author Organization [facility] Address [address] [place] [address] Care Team Providers Care Radio Repairman Name Role Phone Annetta Lowequentin Warner APRN Primary Care Provider [phone] Encounter Details Date Type Department Care Team (Late st Contact Info) Description 11/06/2021 Lab Requisition [facility] Pathology & Laboratory Medicine - [facility] [address] [place] [address] Outr Resulting Lab, Provider Social History Tobacco [...] Priority Date/Time Associated Diagnosis Comments ZZCOVID-19 TEST [facility] PCR Today 11/06/2021 10:15 EDT COVID-19 TESTING Routine 11/06/2021 10:1 5 EDT documented in this encounter Results * COVID-19 TEST [facility] PCR (11/06/2021 10:15 EDT) Swab 11/06/2021 10:1 5 EDT 11/06/2021 21:42 EDT Provider Outr Resulting Lab MICROBIOLOGY - GENERAL ORDERABLES [facility] [address] [place] [address] * COVID-19 TESTING (11/06/2021 10:15 EDT) COVID-19 rt-PCR Result Negative Negative 11/07/2021 11:28 EDT [facility] Comment: This test has not been FDA cleared or approved. This test has been authorized by FDA under an EUA for use by authorized laboratories. This test has been authorized only for detection of nucleic acid from 2019-nCoV, not for any other viruses or pathogens. This test is only authorized for the duration of the declaration that circumstances exist justifying the authorization of emergency use of in vitro diagnostic tests for detection and/or diagnosis of 2019-nCoV under section 564(b)(1) of Act, 21 U.S.C ?? 360bbb-3(b) (1), unless the authorization is terminated or revoked sooner. Negative results do not preclude 2019-nCoV infection and should not be used as the sole basis for treatment or other patient management decisions. Negative results must be combined with clinical observations, patient history, and epidemiological information. Testing was performed using the kyaw SARS-CoV-2 assay ([employer] on the Kyaw 6800 System Performing Lab Kyaw [address] [facility] Lab 11/07/2021 11:28 EDT [facility] Swab 11/06/2021 10:1 5 EDT 11/06/2021 21:42 EDT Provider Outr Resulting Lab MICROBIOLOGY - GENERAL ORDERABLES [facility] [address] [place] [address] documented in this encounter Visit Diagnoses Not on filedocumented in this encounter Care Teams Radio Repairman Relationship Specialty Start Date End Date Geetha Lowe APRN [address] [facility] [address] [place] [address] PCP - General 04/11/21 documented as of this encounter
--- OUTSIDE RECORDS SUMMARY | 2024-02-14 18:19 | XMS_ITS | Encounter Summary ---
Author Organization [facility] Address [address] [place] [address] Care Team Providers Care Roll Sheeting Cutter Name Role Phone Gilberto Jacome MD Primary Care Provider [phone] Geetha Lowe APRN Primary Care Provider [phone] Encounter Details Date Type Department Care Team (Late st Contact Info) Description 01/08/2020 Lab Requisition [facility]ology & Laboratory Medicine - [facility] [address] [place], [place] [address] Outr Resulting Lab, Provider Social History Tobacco Use Types Packs/Day Years Used Date Smoking Tobacco: Never Smokeless Tobacco: Never Alcohol Use Standard Drinks/Week Comments Yes 0.8 (1 standard drink = 0.6 oz p ure alcohol) Sex and Gender Information Value Date Recorded Sex Assigned at Not on file Gender Identity Male 04/11/2021 18:27 EDT Sexual Orientation Not on file documented as of this encounter Plan of Treatment Not on file documented as of this encounter Procedures Procedure Name Priority Date/Time Associated Diagnosis Comments DO NOT ORDER STANDALONE - BROAD COVID TEST Today 01/08/2020 8:58 EDT COVID-19 TESTING Routine 01/08/2020 8:58 EDT documented in this encounter Results * DO NOT ORDER STANDALONE - BROAD COVID TEST (01/08/2020 8:58 EDT) COVID-19 rt-PCR Result NEGATIVE Negative 01/10/2020 14:[address] [facility] Comment: 2019-novel Coronavirus (2019-nCoV) not detected by the qRT-PCR assay. Consider testing for other respiratory viruses or re-collecting for 2019-nCoV testing. Note: Optimum timing for peak viral levels during infections caused by 2019-nCoV have not been determined. Collection of multiple specimens from the same patient may be necessary to detect the virus. Limitations Positive results are indicative of active infection with SARS-CoV-2 but do not rule out bacterial infection or co-infection with other viruses. The agent detected may not be the definite cause of disease. In addition, detection of viral RNA may not indicate the presence of infectious virus or that SARS-CoV-2 is the causative agent for clinical symptoms. Negative results do not preclude SARS-CoV-2 infection and should not be used as the sole basis for patient management decisions. Negative results must be combined with clinical observations, patient history, and epidemiological information. False negative results may also occur if amplification inhibitors are present in the specimen or if inadequate numbers of organisms are present in the specimen. Optimum specimen types and timing for peak viral levels during infections caused by SARS-CoV-2 have not been fully determined. Collection of multiple specimens (types and time points) from the same patient may be necessary to detect the virus. The test was validated for use with upper respiratory specimens obtained via nasopharyngeal or oropharyngeal swabs in VTM, UTM, M4, M5, M6, saline, and MTM media. The performance of this test has not been established for other specimens. Specimens collected using other FDA recommended Specimen Collection Materials listed in the FDA COVID-19 [employer] communication (September 14, 2019) are processed with the caveat that they were not all validated for use with this test and the result must be interpreted in this context. Furthermore, a false negative results may occur if a specimen is improperly collected, transported or handled. If the virus mutates in the RT-PCR target region, SARS-CoV-2 may not be detected or may be detected less predictably. Inhibitors or other types of interference may produce a false negative result. An interference study evaluating the effect of common cold medications was not performed. This test is not FDA-cleared but its performance characteristics were established by our CLIA-certified, CAP-accredited, high complexity laboratory in accordance with CLIA regulations, [employer] (CAP) guidelines (Sep 07, 2019), and FDA guidance (Aug 19, 2019). This test is only for use under the Food and Drug Administration's Emergency Use Authorization. Swab ENTIRE NASOPHARYNX / Unknown 01/08/2020 8:58 EDT 01/08/2020 16:34 EDT Provider Outr Resulting Lab MICROBIOLOGY - GENERAL ORDERABLES [facility], [place] * COVID-19 TESTING (01/08/2020 8:58 EDT) COVID-19 rt-PCR Result NEGATIVE Negative 01/10/2020 17:[address] [facility] Comment: 2019-novel Coronavirus (2019-nCoV) not detected by the qRT-PCR assay. Consider testing for other respiratory viruses or re-collecting for 2019-nCoV testing. Note: Optimum timing for peak viral levels during infections caused by 2019-nCoV have not been determined. Collection of multiple specimens from the same patient may be necessary to detect the virus. Limitations Positive results are indicative of active infection with SARS-CoV-2 but do not rule out bacterial infection or co-infection with other viruses. The agent detected may not be the definite cause of disease. In addition, detection of viral RNA may not indicate the presence of infectious virus or that SARS-CoV-2 is the causative agent for clinical symptoms. Negative results do not preclude SARS-CoV-2 infection and should not be used as the sole basis for patient management decisions. Negative results must be combined with clinical observations, patient history, and epidemiological information. False negative results may also occur if amplification inhibitors are present in the specimen or if inadequate numbers of organisms are present in the specimen. Optimum specimen types and timing for peak viral levels during infections caused by SARS-CoV-2 have not been fully determined. Collection of multiple specimens (types and time points) from the same patient may be necessary to detect the virus. The test was validated for use with upper respiratory specimens obtained via nasopharyngeal or oropharyngeal swabs in VTM, UTM, M4, M5, M6, saline, and MTM media. The performance of this test has not been established for other specimens. Specimens collected using other FDA recommended Specimen Collection Materials listed in the FDA COVID-19 [employer] communication (September 14, 2019) are processed with the caveat that they were not all validated for use with this test and the result must be interpreted in this context. Furthermore, a false negative results may occur if a specimen is improperly collected, transported or handled. If the virus mutates in the RT-PCR target region, SARS-CoV-2 may not be detected or may be detected less predictably. Inhibitors or other types of interference may produce a false negative result. An interference study evaluating the effect of common cold medications was not performed. This test is not FDA-cleared but its performance characteristics were established by our CLIA-certified, CAP-accredited, high complexity laboratory in accordance with CLIA regulations, [employer] (CAP) guidelines (Sep 07, 2019), and FDA guidance (Aug 19, 2019). This test is only for use under the Food and Drug Administration's Emergency Use Authorization. Performing Lab [facility] 01/10/2020 17:18 EDT [facility] Swab 01/08/2020 8:58 EDT 01/08/2020 16:34 EDT Provider Outr Resulting Lab MICROBIOLOGY - GENERAL ORDERABLES [facility] [address] [place] [address] [facility] [place] documented in this encounter Visit Diagnoses Not on filedocumented in this encounter Care Teams Roll Sheeting Cutter Relationship Specialty Start Date End Date Gilberto Jacome MD [address] [place] [address] PCP - General 02/25/11 04/10/21 Geetha Lowe APRN [address] [facility] [address] [place] [address] PCP - General 04/11/21 documented as of this encounter
--- OUTSIDE RECORDS SUMMARY | 2024-02-14 18:19 | XMS_ITS | Encounter Summary ---
Author Organization [facility] Address [address] [place] [address] Care Team Providers Care Remote Encoding Center Manager Name Role Phone None, Provider Primary Care Provider Unavailabl e Reason for Visit * Reason Comments Other Chronic Rhinitis Encounter Details Date Type Department Care Team (Late st Contact Info) Description 02/09/2011 10:30 EDT Office Visit [facility] ENT - [facility] [address] [place] [address] Clarice Strong MD [address] [facility], [address] [place] [address] Epistaxis; DNS (deviated nasal septum) Social History Tobacco Use Types Packs/Day Years [...] Sign Reading Time Taken Comments Blood Pressure - - Pulse - - Temperature - - Respiratory Rate - - Oxygen Saturation - - Inhaled Oxygen Concentration - - Weight 56.7 kg (125 lb) 02/09/2011 1029 EDT Height 165.1 cm (5' 5) 02/09/2011 1029 EDT Body Mass Index 20.8 02/09/2011 1029 EDT documented in this encounter Progress Notes * Clarice Strong MD - 02/09/2011 1046 EDT This office note has been dictated. documented in this encounter Consult Notes * Clarice Strong MD - 02/12/2011 1432 EDT [facility] OTOLARYNGOLOGY CONSULTATION - 02/09/2011 Michele Whitehead MD [address] [place] [address], [address] [place] [address] Dear Bill: I saw Domingo Goncalves today in consultation for epistaxis and nasal congestion. He is a pleasant 20-year-old gentleman who reports a 3-month history of nose bleeds that occur approximately once every 2 to 3 weeks. These typically occur on the left-hand side and are resolved with pinching of the noseand tilting his head backward. He has also noted some specks of blood in his saliva and is concerned. He reports nasal congestion and states that it alternates sides. He his sense of smell is intact and he has no history of nasal fracture. He does not smoke. Recent evaluation by you revealed cat and mold allergies and he was treated with Veramyst. He has been using the spray for approximately 1 month and states that he has improvement of his nasal congestion, epiphora and sneezing. He also has a history of asthma for which he takes Advair Diskus and albuterol rescue inhaler. His past medical history, past surgical history, medications, allergies, social history and family history are reviewed and documented in [facility]. A 10-point review of systems completed and found to bepositive for environmental allergies. On exam, he is a healthy appearing boy in no distress. His breathing is unlabored and he speaks with a clear voice. His affect is pleasant. His skin is healthy in appearance and grossly facial nerve function is intact. There is no nystagmus. Otoscopic examination bilaterally demonstrates normal external auditory canal, tympanic membrane and middle ear space. Anterior rhinoscopy demonstrates a deviated nasal septum to the left-hand side. There is an excoriated region along Kiesselbach's plexus. The inferior turbinate is significantly hypertrophied on the left and is small on the right. Oral cavity reveals 2+ tonsils and midline palate. Indirect visualization of the glottis is normal. Neck issoft without palpable adenopathy. Nasal endoscopy was undertaken. Cophenylcaine is administered bilaterally and the pediatric flexible scope was used. Beginning on the left-hand side, note is made of a markedly deviated nasal septum and inferior turbinate hypertrophy. There are no lesions identified in the nasal cavity. The scope was then passed on the right-hand side. There were no lesions noted within the nasal cavity. The mucosa was noted to boggy consistent with allergic rhinitis. Silver nitrate is applied to the left-hand side of the region of Kiesselbach's plexus. Impressions and Recommendations: Sacha Lane is a pleasant 20-year-old gentleman with allergic rhinitis that is responding to Veramyst and left-sided epistaxis that is likely exposure related due to his deviated nasal septum. Silver nitrate was applied today. I recommended bacitracin to the noseas well as the direction of the Veramyst away from his nasal septum as well as directing the Veramyst away from his nasal septum. Our standard epistaxis treatment and prevention sheet was reviewed and given with Sacha today. He can follow up on an as-needed basis. Thank you very much for the consultation. Please let me know if I can be of any further assistance. Sincerely, Electronically Signed by Clarice Strong MD 02/12/2011 14:32 Clarice Strong MD - Clarice Strong MD - WP Job ID: SM Doc ID: [id number] [facility] Doc ID: [id number] cc: Michele Whitehead MD documented in this encounter Plan of Treatment Not on file documented as of this encounter Visit Diagnoses Diagnosis Epistaxis DNS (deviated nasal septum) Deviated nasal septum documented in this encounter Discontinued Medications Medication Sig Discontinue Reason Start Date End Da te fexofenadine (WENDI) 60 mg tablet Take 60 mg by mouth daily. Therapy completed 02/09/2011 documented as of this encounter Historical Medications * This list may reflect changes made after this encounter. Medication Sig Dispensed Refills Start Date End Date ALBUTEROL INHL Inhale as directed as needed. 1 added in this encounter Care Teams Remote Encoding Center Manager Relationship Specialty Start Date End Date None, Provider PCP - General 02/09/11 02/24/11 documented as of this encounter
--- OUTSIDE RECORDS SUMMARY | 2024-02-14 18:19 | XMS_ITS | Encounter Summary ---
Author Organization [facility] Address [address] [place] [address] Care Team Providers Care Operations And Maintenance Supervisor Name Role Phone Unavailable Primary Care Provider Unavailabl e Encounter Details Date Type Department Care Team (Latest Contact Info) Description 05/29/2008 15:30 EST Hospital Encounter [facility] Emergency Department - [facility] [address] [place] [address] Emergency, Default, MD Discharge Disposition: Home or Self Care Social History Tobacco Use Types Packs/Day Years Used Date Smoking Tobacco: Never Assessed Sex and Gender Information Value Date Recorded Sex Assigned at Not on file Gender Identity Male 04/11/2021 18:27 EDT Sexual Orientation Not on file documented as of this encounter Discharge Disposition Disposition Code Departure Means Destination Home or Self Care documented in this encounter Plan of Treatment Not on file documented as of this encounter Visit Diagnoses Not on filedocumented in this encounter
--- OUTSIDE RECORDS SUMMARY | 2024-02-14 18:19 | XMS_ITS | Encounter Summary ---
Author Organization [facility] Address [address] [place] [address] Care Team Providers Care Garment Sewing Machine Operator Name Role Phone Geetha Lowe APRN Primary Care Provider [phone] Reason for Referral * Prior Authorization (See Order Priority) - Authorization Not Required Specialty Diagnoses / Procedures Referred By Aura mesa Referred To Contact Infusion Therapy Diagnoses Yesica Goodwin MD [address] [facility], [address] [place] [address] [facility] [address] [place] [address] Referral ID Status Reason Start Date Expiration Date Visits Requested Visits Authorized [id number] Authorization Not Required Specialty Services Required 04/11/20 [...] Plan, Lab Orders, Supportive Plan, Etc) Yes Reason for Visit * Prior Authorization (See Order Priority) - Authorization Not Required Specialty Diagnoses / Procedures Referred By Contileana t Referred To Contact Infusion Therapy Diagnoses VARUN Elizabeth, Yesica Boswell MD [address] [facility], [address] [place] [address] [facility] [address] [place] [address] Referral ID Status Reason Start Date Expiration Date Visits Requested Visits Authorized [id number] Authorization Not Required Specialty Services Required 04/11/20 21 1 1 Encounter Details Date Type Department Care Team (Late st Contact Info) Description 04/13/2021 7:06 EDT - 04/13/2021 23:59 EDT Hospital Encounter [facility] - [address] [address] Infusion, Monoclonal Antibody COVID Discharge Disposition: Home or Self Care Social [...] Sign Reading Time Taken Comments Blood Pressure 122/69 04/13/2021 1553 EDT Pulse - - Temperature 36.6 ??C (97.9 ??F) 04/13/2021 1553 EDT Respiratory Rate 18 04/13/2021 1553 EDT Oxygen Saturation 100% 04/13/2021 1553 EDT Inhaled Oxygen Concentration - - Weight - - Height - - Body Mass Index - - documented in this encounter Discharge Instructions * Discharge Instructions* Lela Ross RN - 04/13/2021 8:30 EDT Images from the original note were not included. Today you received an infusion of a monoclonal antibody called REGEN-COV (casirivimab and imdevimab) for treatment of COVID-19 symptoms. After you are sent home you must continue with isolation precautions. Self isolate until all three criteria are met: - at least 24 hours have passed since last fever-reducing medications AND - symptoms have improved AND - at least 10 days after symptoms first appeared If you experience symptoms of delayed infusion reaction including Itching Nausea Dizziness Headache Rash Consult your medical doctor If you experience: Difficulty breathing or chest pain call 911 Provider Name: Contact Number: documented in this encounter Medications at Time of Discharge Medication Sig Dispensed Refills Start Date End Date ALBUTEROL INHL Inhale as directed as needed. 02/09/2011 fluticasone-salmeterol (ADVAIR) 100-50 mcg/Dose diskus inhaler Inhale 1 Puff as directed every 12 hours. documented as of this encounter Discharge Disposition Disposition Code Departure Means Destination Home or Self [facility] documented in this encounter Progress Notes * Lela Ross RN - 04/13/[address] arrives to [facility] infusion room for REGEN-COV treatment of COVID 19 related to ICD U07.1 VSS, Peripheral IV inserted. Consent and education for infusion performed by provider prior to arrival. Casirivimab-imdevimab initiated at 1430. Infusion completed at 1506. Pt remains for 1 hour post observation. Pt tolerated infusion without signs or symptoms of infusion reaction. Educated about importance of maintaining isolation protocol and signs and symptoms of delayed infusion reaction and when to call doctor. Vital signs rechecked. PIV removed. Discharged to home ambulatory. documented in this encounter Plan of Treatment Scheduled Referrals Name Type Priority Associated Diagnoses Order Schedule AMB CONS/FOLLOW UP SHEP 4 INFUSIONS Outpatient Referral Urgent Covid 1 Occurrences starting 04/13/2021 until 04/13/2021 documented as of this encounter Visit Diagnoses Diagnosis COVID documented in this encounter Administered Medications Inactive Administered Medications - up to 3 most recent administrations Medication Order MAR Action Action Date Dose Rate Site casirivimab-imdevimab 1,200 mg in sodium chloride (NS) 0.9 % 150 mL IVPB 1,200 mg, intravenous, Administer over 31 Minutes, NOW X1, 1 dose, On 04/13/21 at 1330, Indication: Therapeutic Use/Patient is COVID positive, Select appropriate high risk criteria as outlined by the EUA: Chronic lung diseases, Provider has discussed the information consistent with the Fact Sheet for Patients, Parents, and Caregivers. Yes, Patient has been informed that casirivimab-imdevimab is an unapproved drug that is authorized under a EUA; and understands the risks and benefits? Yes, Routine Given 04/13/2021 14:30 EDT 1,200 mg 310 mL/hr documented in this encounter Orders Medications Ordered That Sea ht Not Have Been Administered Count Last Ordered Date First Ordered Date acetaminophen (TYLENOL) tablet 650 mg 1 casirivimab-imdevimab 1,200 mg in sodium chloride (NS) 0.9 % 150 mL IVPB 1 04/13/2021 diphenhydrAMINE (BENADRYL) injection 50 mg 1 04/13/2021 EPINEPHrine (ADRENALIN) injection 0.3 mg 1 04/13/2021 lidocaine (PF) 10 mg/mL (1 % ) injection 2 mg 1 04/13/2021 methylPREDNISolone sod suc(P F) (SOLU-MEDROL) injection 100 mg 1 04/13/2021 ondansetron (PF) (ZOFRAN) injection 4 mg 1 04/13/2021 sodium chloride 0.9 % (flush) flush 10 mL 1 04/13/2021 sodium chloride 0.9 % (flush) flush 20 mL 1 04/13/2021 sodium chloride 0.9 % (NS) infusion 1 04/13 documented in this encounter Care Teams Garment Sewing Machine Operator Relationship Specialty Start Date End Date Geetha Lowe APRN [address] [facility] [address] [place] [address] PCP - General 04/11/21 documented as of this encounter
--- OUTSIDE RECORDS SUMMARY | 2024-02-14 18:19 | XMS_ITS | Continuity of Care Document ---
Author Organization [facility] Address [address] [place] [address] Care Team Providers Care Presetter Operator Name Role Phone [facility] Dentist Assessment Encounter Date Assessment Date Assessment LastModified by Organization Details LastModified Time 12/28/2023 12/28/2023 Flu vaccine: current Comirnaty: current Td: current due 2027 PCV20: provide today. PPSV23 in 2018. Follow-up in 6 Months. Call or RTO sooner if needs arise. [email or web address] Not available 12/28/2023 15:52:46 Plan of Treatment Reminders Order Date Submit Date Provider Last Modified By Organization Details Last Modified Time Details Appointments Procedure 40 2023 01:30P M Not available Not available Not available Nurse Visit 30 2023 12:00P M Not available Not available Not available Office Visit 30 2024 02:30P M Not available Not available Not available Lab HbA1c (hemoglob in A1c), blood 2023 024 [facility] (Registration ), [address] [place] [address] [place], [address], 01/03/2024 11:18:33 lipid panel, serum 2023 024 [facility] (Registration ), [address] [place] [address] [place], [address], 01/03/2024 11:18:44 Referral None recorded. Procedures None recorded. Surgeries None recorded. Imaging None recorded. Medication Orders None recorded. Patient TargetsNo targets recorded. Patient Instructions Encounter Date Encounter Id Patient Instructions Last Modified By Organization Details Last Modified Time 12/28/2023 [id number] starting a weigh t loss plan: care instructions [email or web address] Not available 12/28/2023 15:01:54 diet [email or web address] Not available 2023 15:01:54 exercise [email or web address] Not available 2023 15:01:54 Reason for Referral None Reported. Problems Name Status Onset Date Resolution Date Notes Provider Name and Address Organization Details Recorded Time Uncomplicated mild persistent asthma Active 201411/04/2020 - Comments only - Grupo Weiner APRN - with allergic. Stable. continue medication regimen. Problem Code: J45.30; Problem Code Type: ICD-10; Not Available [facility], [facility] 3 05:31:44 Allergic rhinitis Active 201406/06/2021 - Comments only - Grupo Weiner APRN - Struggling with. Continue zyrtec and singulair. Claritin not effective for him in the past. Flonase less effective. Trial dymista BID. Saline sprays, salt water gargles. Refer to folder machine adjuster for testing. Problem Code: J30.9; Problem Code Type: ICD-10; Not Available [facility], [facility] 3 05:31:45 Bilateral hearing loss Active 201701/10/2018 - Comments only - Jesika KEYESP - - Disucssed audiology referral. We did not come to a decision regarding whether or not he wants the referral. Will have coordinator reach out in a couple of days to see if he wants this referral or not Problem Code: H91.93; Problem Code Type: ICD-10; Not Available [facility], [facility] 3 05:31:45 Anxiety Active 201906/06/2021 - Comments only - Grupo Weiner APRN - OCD. Improving. Encouraged continued counseling, he is in transition to find a new counselor. Currently doing sertraline 100mg, will increase to 150mg once a day. Ativan for 1 more month at 10 tabs/ month then look at alternatives for anxiety. Does not tolerate hydroxyzine, s/e. Consider NAC, propranolol or buspar. Problem Code: F41.8; Problem Code Type: ICD-10; Not Available [facility] 3 05:31:45 Obsessive compulsive personality disorder Active 2020 Problem Code: F60.5; Problem Code Type: ICD-10; Not Available [facility] 3 05:31:45 Snoring Active 202008/05/2020 - Comments only - Grupo Hesnleybam RIVAS - Witnessed apnea per his girlfriend. Refer to sleep clinic. Problem Code: R06.83; Problem Code Type: ICD-10; Not Available [facility] 3 05:31:45 Nonulcer dyspepsia Active 202011/04/2020 - Comments only - Grupo Mynor RIVAS - Stable. continue medication. Continue to work diet mgmt. Check mag, B12 and BMP. Problem Code: K30; Problem Code Type: ICD-10; Not Available [facility] 3 05:31:45 Obesity Active 2020 Problem Code: E66.9; Problem Code Type: ICD-10; Not Available [facility] 3 05:31:45 Hand pain Active 202006/06/2021 - Comments only - Grupo Weiner APRN - differentials include r/t COVID19, MAB infusion, autoimmune conditions. Unlikely OA r/t age. Diet in origin. Monitor for now. Encouraged gluten free diet for short duration. Introduce tumeric in diet as desires. If not improving consider checking TSH with R, YANI, ESR, CRP, anti-CCP and RF. Problem Code: M79.643; Problem Code Type: ICD-10; Not Available [facility] 3 05:31:45 Headache Active 2021 Problem Code: R51.9; Problem Code Type: ICD-10; Not Available [facility] 3 05:31:45 Herpes zoster Active 2022 Problem Code: B02.9; Problem Code Type: ICD-10; Not Available [facility] 3 05:31:46 Ingrowing nail Completed 201802/11/2023 Problem Code: L60.0; Problem Code Type: ICD-10; Not Available [facility] 3 05:31:46 Counseling Completed 202002/11/2023 Problem Code: Z71.89; Problem Code Type: ICD-10; Not Available [facility] 3 05:31:46 Asthma Completed 201403/17/2023 Not Available [facility] 3 05:31:46 Acute pharyngitis Completed 202102/11/2023 Problem Code: J02.9; Problem Code Type: ICD-10; Not Available [facility] 3 05:31:46 Low back pain Completed 202009/12/2021 Problem Code: M54.5; Problem Code Type: ICD-10; Not Available [facility] 3 05:31:46 Generalized hyperhidrosis Completed 202001/30/2021 Problem Code: R61; Problem Code Type: ICD-10; Not Available [facility] 3 05:31:46 History of SARS-CoV-2 Completed 202002/11/2023 Problem Code: Z86.16; Problem Code Type: ICD-10; Not Available [facility] 3 05:31:46 Bleeding from nose Completed 201601/30/2021 Problem Code: R04.0; Problem Code Type: ICD-10; Not Available [facility] 3 05:31:47 Increased frequency of urination Completed 201901/30/2021 Problem Code: R35.0; Problem Code Type: ICD-10; Not Available [facility] 3 05:31:47 History and physical examination, administrativ e Completed 201410/27/2016 Problem Code: Z02.89; Problem Code Type: ICD-10; Not Available [facility] 3 05:31:47 Chest pain Completed 201901/30/2021 Problem Code: R07.89; Problem Code Type: ICD-10; Not Available [facility] 3 05:31:47 Hand pain Active [address], [place], [address] , [facility] 4 05:32:27 Skin lesion Active [address], [place], [address] , [facility] 4 14:41:56 Problem Notes None recorded. Procedures Surgical History Date Name Laterality Status Provider Name and Address Organization Details Recorded Time 02/14/2024 Punch Biopsy completed [address], [place], [address], [facility] 02/14/2024 14:08:08 Imaging Results None recorded. Procedure Notes None recorded. Medical Equipment None Reported. Allergies Allergen ID Allergen Name Allergen Category Reaction Reaction Severity Criticality Documentation Date Start Date Code Code System Note Provider Name and Address Organization Details Recorded Time [address] [facility] hives Not available Not available 04/30/20232014 5 RxNorm Mirella Andrews RN [facility], [facility] 4 17:37:43 Medications Name Sig Start Date Stop Date Status Note LastModified by Organization Details LastModified Time Singulair 10 mg tablet Take 1 tablet by mouth once a day as needed 02/11 completed Not Available Not Available Not Available buspirone 5 mg tablet TAKE ONE TABLET BY MOUTH TWICE A DAY active Not Available Not Available No t Available fluticasone 250 mcg-salmete rol 50 mcg/dose blistr powdr for inhalation INHALE ONE PUFF BY MOUTH TWICE A DAY active Not Available Not Available No t Available prednisone 10 mg tablet 4 tabs x 3 days, 3 tabs x 3 days, 2 tabs x 3 days and 1 tab x 3 days 09/11 completed Not Available Not Available Not Available cetirizine 10 mg tablet Take 1 tab by mouth daily. 09/03 completed Not Available Not Available Not Available valacyclovi r 1 gram tablet Take 1 tablet 3 times a day by oral route for 7 days. 12/27 completed Not Available Not Available Not Available sertraline 100 mg tablet TAKE ONE TABLET BY MOUTH EVERY DAY WITH 50MG active Not Available Not Available No t Available penicillin V potassium 500 mg tablet 1 TAB twice daily 10/27 completed Not Available Not Available Not Available famotidine 20 mg tablet take 1 tablet once a day 08/05 completed Not Available Not Available Not Available buspirone 10 mg tablet Take 1 tablet by mouth twice a day 11/04 completed Not Available Not Available Not Available lansoprazol e 30 mg capsule,del ayed release TAKE ONE CAPSULE BY MOUTH EVERY DAY active Not Available Not Available No t Available Advair Diskus 500 mcg-50 mcg/dose powder for inhalation Inhale 1 puff by mouth twice a day 01/30 completed Not Available Not Available Not Available gabapentin 300 mg capsule Take 1 capsule twice a day by oral route for 10 days. 12/27 completed Not Available Not Available Not Available omeprazole 20 mg capsule,del ayed release 1 capsule by mouth daily 08/05 completed Not Available Not Available Not Available hydroxyzine HCl 25 mg tablet 04/28 completed Not Available Not Available Not Available Ativan 0.5 mg tablet Take 1 tablet by mouth once a day as needed 03/13 completed Not Available Not Available Not Available Zoloft 25 mg tablet take 2 tablet once a day 11/07 completed Not Available Not Available Not Available fluticasone propionate 50 mcg/actuati on nasal spray,suspe nsion SPRAY ONE SPRAY IN EACH NOSTRIL TWICE DAILY 08/17 completed Not Available Not Available Not Available sertraline 50 mg tablet TAKE ONE TABLET BY MOUTH EVERY DAY active Not Available Not Available No t Available Bactrim DS 800 mg-160 mg tablet Take 1 tab by mouth twice daily 09/17 completed Not Available Not Available Not Available Spiriva with HandiHaler 18 mcg and inhalation capsules inhale 1 capsule daily 09/11 completed Not Available Not Available Not Available Albuterol Sulfate HFA 90 mcg/Actuati on aerosol inhaler 2 PUFFS .qid wheezing/ SOB 2014 active Not Available Not Available Not Avai lable ProAir HFA 90 mcg/actuati on aerosol inhaler Inhale 1-2 puff using inhaler every four to six hours as needed 2022 active Not Available Not Available Not Avai lable Zyrtec 10 mg capsule Take 1 tablet by mouth once a day 2019 active Not Available Not Available Not Avai lable Claritin Liqui-Gel 10 mg capsule Take 1 tab by mouth daily 01/10 completed Not Available Not Available Not Available Aerochamber Mini Use 2019 active Not Available Not Available Not Avai lable azelastine 137 mcg-flutica sone 50 mcg/spray nasal spray USE ONE SPRAY IN BOTH NOSTRILS TWO TIMES A DAY active Not Available Not Available No t Available Incruse Ellipta 62.5 mcg/actuati on powder for inhalation INHALE 1 PUFF BY MOUTH DAILY 08/05 completed Not Available Not Available Not Available Vitals Date Recorded Body height Body mass index (BMI) Body weight Body temperature Oxygen saturation Oxygen saturation in Arterial blood by Pulse oximetry Heart rate Systolic blood pressure Diastolic blood pressure Provider Name and Address Organization Details Last Updated DateTime 4 165.862 cm 29.2 kg/m2 46245.5 5 g 99.2 [degF] 96 % 96 % 81 /min 112 mm[Hg] 78 mm[Hg] ANA MARIA ROBERTS CMA [facility] 14:35:36 Social History Question Answer Notes LastModified by Organizat ion Details LastModified Time Tobacco Smoking Status Never Smoker Mirella Andrews RN [facility], [facility] 08/04/2023 17:39:01 What Was The Date Of Your Most Recent Tobacco Screening? 08/04/2023 Information not available 08/04/2023 Has Tobacco Cessation Counseling Been Provided? Yes Information not available 08/04/2023 On What Date Was Tobacco Cessation Counseling Provided? 08/04/2023 Information not available 08/04/2023 Do You Or Have You Ever Used Any Other Forms Of Tobacco Or Nicotine? No Information not available 08/04/2023 Sex: Male Functional Status None recorded. Mental Status None recorded. Family History Relationship Description Onset Age of this Age Resolved Age Notes Notes:*Problem: mother alive and well father alive - HTN, testicular Ca 3 brothers, all healthy no children HTN - yes HLD - no CAD - no DM - no Ca breast - no Ca colon- no Ca prostate - no ETOH - no pgf - lung Ca Medical History No medical history recorded. Immunizations Vaccine Type Date Status Provider Name and Address Organization Details Recorded Time Pneumococcal conjugate PCV20, polysaccharide [id number] conjugate, adjuvant, PF 12/28/2023 completed GRUPO WEINER, [employer] [address], [place], [address], [facility] 12/28/2023 15:52:29 Tdap 01/10/2018 completed Not Available [facility]1983 06:14:30 Influenza, split virus, trivalent, preservative 10/27/2016 completed Not Available [facility] 04/30/2023 06:14:31 Influenza, split virus, quadrivalent, PF 03/12/2021 completed Not Available [facility] 04/30/2023 06:14:31 Influenza, split virus, quadrivalent, PF 03/13/2022 completed Not Available [facility] 04/30/2023 06:14:31 Influenza, split virus, quadrivalent, PF 04/24/2019 completed Not Available [facility] 04/30/2023 06:14:31 Influenza, split virus, quadrivalent, preservative 06/22/2018 completed Not Available [facility] 04/30/2023 06:14:31 COVID-19, mRNA, LNP-S, PF, 100 mcg/0.5mL dose or 50 mcg/0.25mL dose 07/15/2021 completed Not Available [facility] 04/30/2023 06:14:31 COVID-19 vaccine, vector-nr, rS-Ad26, PF, 0.5 mL 09/07/2020 completed Not Available [facility] 04/30/2023 06:14:31 SARS-COV-2 (COVID-19) vaccine, UNSPECIFIED 02/25/2022 completed Not Available [facility] 04/30/2023 06:14:31 pneumococcal polysaccharide PPV23 01/10/2018 completed Not Available [facility] 2022 06:14:31 COVID-19, mRNA, LNP-S, PF, 100 mcg/0.5mL dose or 50 mcg/0.25mL dose 03/08/2023 completed ASHLEY Khoury, [facility] 08/04/2023 17:31:18 influenza, unspecified formulation 03/05/2023 completed ASHLEY Khoury, [facility] 08/04/2023 17:31:27 Past Encounters Encounter ID Performer Location Encounter Start Date Encounter Closed Date Diagnosis/Indication Diagnosis SNOMED-CT Code [id number] GRUPO WEINER [address] [address] 12/28/2023 14:23:55 12/28/2023 15:12:12 Anxiety 74796476 Uncomplica carlito mild persistent asthma 473248454 Obesity 835630308 Nonulcer dyspepsia 77983 07 Hand pain 52260799 Snoring 85378720 Skin lesion 70857681 Active or passive immunization 293600565 Health Concerns Section Related Observation LastModified by Organization Detai ls LastModified Time None Recorded Concern Status LastModified by Organization Details LastModified Time None Recorded Payers Encounter Date Sequence Insurance Name Policy Number Policy Rocha Covered Member ID Rocha Member ID Guarantor Name 12/28/2023 1 [facility] [id number] Sacha Rene [id number] Sacha Rene Notes Date Note Type Note Provider Name and Address Organization Details Recorded Time 12/28/2023 text/html HPI Notes: Is he re for follow-up only concern is some spots to his arms. Has had for a long time and do not go away. Not changing in size. Anxiety. Depression. OCD. Takes sertraline, BuSpar. Allergic rhinitis. Asthma. Takes Astelin? fluticasone, Singulair, Zyrtec, Advair twice daily, ProAir as needed. Obesity. Working on lifestyle. Dyspepsia. Takes lansoprazole he. Hand pain. no longer needing tumeric. -- update 7..24. it is ok.: not having any. Snoring. has not complained of any recent snoring or apnea. Headache. Takes meds as needed. GRUPO WEINER, [employer] [address], [place], [address], [facility]. 12/28/2023 15:52:59
--- OUTSIDE RECORDS SUMMARY | 2024-02-14 18:19 | XMS_ITS | Encounter Summary ---
Author Organization [facility] Address [address] [address] Care Team Providers Care Contact Assembler Name Role Phone MynorAnnettaGeetha Timmy RIVAS Primary Care Provider [phone] Reason for Visit * Reason Comments Follow-up Skin Check Encounter Details Date Type Department Care Team (Late st Contact Info) Description 10/11/2018 4:30 PM EDT Office Visit Dermatology at [address] [id number] Brendan Marcus MD [address] [place] [address] RD, [place] [address] Idiopathic urticaria; Dermatographism Social History Tobacco Use Types Packs/Day Years Used Date Smoking Tobacco: Never Smokeless Tobacco: Never Sex and Gender Information Value Date Recorded Sex Assigned at Not on file Gender Identity Not on file Sexual Orientation Not on file documented as of this encounter Progress Notes * Brendan Marcus MD - 10/11/2018 4:30 PM EDT Problem: William Goncalves is a 28-year-old whom I last saw in 2015 for 2 foot 1 hand disease. I treated him with a course of terbinafine and that has cleared and not recurred. 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 He states about 2 months ago he had a significant reaction with hives which he thought was due to a infection that he had.He was red all over his neck his chest his back. At this cleared with antihistamines. About a week and half ago he had a mild case of an itchy rash that would come and go on his arms his torso, with no one spot lasting longer than 24 hours. His girlfriend Tracey had just purchased a small top loading washing machine which does not spin dry they have to wring them dry hang up their clothes to dry them. They had been using Extra fragranced detergent but then switched to All fragrance free. The patient does have a cat at home but they have had the cat for 2 years. Patient tried to treat this rashwith Benadryl topically as cream and with oral pills with some slight improvement. He has not had any recent infection or virus over the last week and a half. He has not traveled in the last week rohan half. There is been no change in his work in the last week and a half. His only regular medications are Advair and intermittent Claritin. His significant other Tracey has no dermatitis herself. Patient states that he goes to visit his mother who has a number of dogs that he will get quite a reaction , typically more rhinitis sneezing runny eyes. Different than his current symptoms of dermatographism/urticaria. Patient denies physical urticaria in the past although he does state that with changing of the weather he will sometimes get sneezing sniffles hayfever-like symptoms. We certainly havehad change rapidly from winter to spring just within the last week and 1/2-2 weeks so the change inthe season so abruptly may play a role here. Physical examination today reveals some areas of ermatographism with erythema and erythema with light stroking on his back. Where he scratched his right flank he has 2 welts. One on his left dorsal forearm he has a small erythematous patch where he scratched. Assessment plan: Urticaria/dermatograpism 1. Patient does not have any photographs of the rash on his cell phone to show me. 2. Recommend treating with antihistamines will recommend loratadine/Claritin 10 mg 1-2 1-3 p.o. daily for itching/hives dispense #90 with 2 refills will call into his right aid in [place] 3. Despite careful history taking unable to find the trigger for this current outbreak/rash. Recommend symptomatic treatment with antihistamines until it passes. 4. Unable to shows associated urticaria with the use of the top washing machine which cannot spin dry. The clothes must then be wrung and hung up to dry the. 5. 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
--- OUTSIDE RECORDS SUMMARY | 2024-02-14 18:19 | XMS_ITS | Encounter Summary ---
Author Organization [facility] Address [address] [place] [address] Care Team Providers Care Tongue Trimmer Name Role Phone Gilberto Jacome MD Primary Care Provider [phone] Geetha Lowe APRN Primary Care Provider [phone] Encounter Details Date Type Department Care Team (Late st Contact Info) Description 12/15/2019 Lab Requisition [facility] Pathology & Laboratory Medicine - [facility] [address] [place], [place] [address] Outr Resulting Lab, Provider Social History Tobacco [...] Procedure Name Priority Date/Time Associated Diagnosis Comments CHLAMYDIA/N. GONORRHOEAE AMPLIFIED NUCLEIC ACID Routine 12/14/2019 8:00 EDT documented in this encounter Results * CHLAMYDIA/N. GONORRHOEAE AMPLIFIED RNA (12/14/2019 8:00 EDT) Neisseria gonorrhoeae Result Negative Negative 12/18/2019 16:39 EDT [facility] Chlamydia trachomatis Result Negative Negative 12/18/2019 16:39 EDT [facility] Urine URINE / Unknown 12/14/2019 8 :00 EDT 12/15/2019 17:31 EDT Provider Outr Resulting Lab MICROBIOLOGY - GENERAL ORDERABLES [facility] [address] [place] [address] documented in this encounter Visit Diagnoses Not on filedocumented in this encounter Care Teams Tongue Trimmer Relationship Specialty Start Date End Date Gilberto Jacome MD [address] [place] [address] PCP - General 02/25/11 04/10/21 Geetha Lowe APRN [address] [place] [address] PCP - General 04/11/21 documented as of this encounter
--- OUTSIDE RECORDS SUMMARY | 2024-02-14 18:19 | XMS_ITS | Encounter Summary ---
Author Organization [facility] Address [address] [place] [address] Care Team Providers Care Agronomy Advisor Name Role Phone None, Provider Primary Care Provider Unavailabl e Reason for Visit * Reason Comments Chest Pain Pt reports chest marek n on left side of chest that started about an hour ago. Pt describes the pain as shooting pain, that comes and goes. Encounter Details Date Type Department Care Team (Late st Contact Info) Description 05/30/2009 15:40 EST - 05/30/2009 17:24 EST Emergency [facility] Emergency Department - [address] [place] [address] [place] [address] Tucker Sosa MD Emergency, MD Trace Chest Pain Discharge Disposition: Home or Self Care Social [...] Sign Reading Time Taken Comments Blood Pressure 129/77 05/30/2009 1543 EST Pulse 78 05/30/2009 1543 EST Temperature 35 ??C (95 ??F) 05/30/2009 1542 EST Respiratory Rate 16 05/30/2009 1543 EST Oxygen Saturation 100% 05/30/2009 1628 EST Inhaled Oxygen Concentration - - Weight - - Height - - Body Mass Index - - documented in this encounter Discharge Instructions * Discharge Instructions* Tucker Sosa MD - 05/30/2009 17:11 EST Images from the original note were not included. [facility] Patient Instructions Musculoskeletal Chest Pain: After Your Visit Your Care Instructions Chest pain is not always a sign that something is wrong with your heart or that you have another serious problem. The doctor thinks your chest pain is caused by strained muscles or ligaments, inflamed chest cartilage, or another problem in your chest, rather than by your heart. You may need more tests to find the cause of your chest pain. Follow-up care is a zimmerman part of your treatment and safety. Be sure to make and go to all appointments, and call your doctor if you are having problems. It???s also a good idea to know your test results and keep a list of the medicines you take. How can you care for yourself at home? ?? Take pain medicines exactly as directed. ?? If the doctor gave you a prescription medicine for pain, take it as prescribed. If you are not taking a prescription pain medicine, ask your doctor if you can take an oara-hie-njrogbk medicine. Do not take two or more pain medicines at the same time unless the doctor told you to. Many pain medicines have acetaminophen, which is Tylenol. Too much acetaminophen (Tylenol) can be harmful. ?? Rest and protect the sore area. Stop, change, or take a break from any activity that may be causing your pain or soreness. Put ice or a cold pack on the sore area for 10 to 20 minutes at a time. Try to do this every 1 to 2hours for the next 3 days (when you are awake) or until the swelling goes down. Put a thin cloth between the ice and your skin. After 2 or 3 days, apply a heating pad set on low or a warm cloth to the area that hurts. Some doctors suggest that you go back and forth between hot and cold. Do not wrap or tape your ribs for support. This may cause you to take smaller breaths, which could increase your risk of lung problems. Mentholated creams such as Bengay or Icy Hot may soothe sore muscles. Follow the instructions on the package. Follow your doctor's instructions for exercising. Gentle stretching and massage may help you get better faster. Stretch slowly to the point just before pain begins, and hold the stretch for 15 to 30 seconds. Do this 3 or 4 times a day. Stretch just after you have applied heat. As your pain gets better, slowly return to your normal activities. Any increased pain may be a signthat you need to rest a while longer. When should you call for help? Call 911 anytime you think you may need emergency care. For example, call if: ?? You have chest pain or pressure. This may occur with: ?? Sweating. Shortness of breath. Nausea or vomiting. Pain that spreads from the chest to the neck, jaw, or one or both shoulders or arms. Dizziness or lightheadedness. A fast or uneven pulse. After calling 911, chew 1 adult-strength aspirin. Wait for an ambulance. Do not try to drive yourself. ?? You have sudden chest pain and shortness of breath, or you cough up blood. Call your doctor now or seek immediate medical care if: ?? You have any trouble breathing. Your chest pain gets worse. Your chest pain occurs consistently with exercise and is relieved by rest. Watch closely for changes in your health, and be sure to contact your doctor if: ?? Your chest pain does not get better after 1 week. Where can you learn more? Go to www.[employer].net/fahc Enter V293 in the search box to learn more about Musculoskeletal Chest Pain: After Your Visit. ?? 2005 - 2008 [employer]. Care instructions adapted under license by [facility], [facility] . This care instruction is for use with your licensed healthcare professional. If you have questions about a medical condition or this instruction, always ask your healthcare professional. [employer] disclaims any warranty or liability for your use of this information. documented in this encounter Medications at Time of Discharge Medication Sig Dispensed Refills Start Date End Date fluticasone-salmeterol (ADVAIR) 100-50 mcg/Dose diskus inhaler Inhale 1 Puff as directed every 12 hours. fexofenadine (WENDI) 60 mg tablet Take 60 mg by mouth daily. 02/09/2011 montelukast (SINGULAIR) 10 mg tablet Take 10 mg by mouth daily. 09/13/2009 tramadol (ULTRAM) 50 mg tablet Take 1 Tab by mouth every 6 hours as needed for Pain. 12 Tab 0 05/30/2009 09/13/2009 documented as of this encounter Ordered Prescriptions Prescription Sig Dispensed Refills Start Date End Da te tramadol (ULTRAM) 50 mg tablet Take 1 Tab by mouth every 6 hours as needed for Pain. 12 Tab 0 05/30/2009 09/13/2009 documented in this encounter Discharge Disposition Disposition Code Departure Means Destination Home or Self Care documented in this encounter Procedure Notes * Inpatient, Physician - 06/25/2009 1133 ESTAssociated Order(s): ECG REPORT - SCANNED documented in this encounter ED Notes * Tucker Sosa MD - 05/30/2009 5550 EST DOS: 05/30/2009 Chief Complaint Patient presents with ??? Chest Pain Pt reports chest pain on left side of chest that started about an hour ago. Pt describes the pain as shooting pain, that comes and goes. Patient is a 19 y.o. male presenting with chest pain. The history is provided by the patient and a friend. Chest Pain This is a new problem. The current episode started less than 1 hour ago. The problem occurs constantly. The problem has been gradually worsening. The pain is associated with exertion. The pain is at a severity of 6/10. The pain quality is described as sharp. The pain does not radiate. The symptoms are worsened by deep breathing. Associated symptoms include shortness of breath. Pertinent negatives include no diaphoresis, no fever, no malaise/fatigue, no numbness, no claudication, no exertional chest pressure, no irregular heartbeat, no near- syncope, no orthopnea, no palpitations, no PND, no syncope, no abdominal pain, no nausea, no vomiting, no headaches, no back pain, no leg pain, no lower e xtremity edema, no dizziness, no weakness, no cough, no hemoptysis and no sputum production. His past medical history does not include aneurysm, CA, DM, DVT, HTN or PE. Procedure history is significant for no cardiac catheterization, no echocardiogram, no EPS study, no persantine thallium, no stress echo, no stress thallium, and no exercise treadmill test. He has tried nothing for the symptoms. Review of Systems Constitutional: Negative. Negative for fever, malaise/fatigue and diaphoresis. HENT: Negative. Eyes: Negative. Respiratory: Positive for shortness of breath. Negative for cough, hemoptysis and sputum production. Cardiovascular: Positive for chest pain. Negative for palpitations, orthopnea, claudication, syncope and PND. Gastrointestinal: Negative. Negative for nausea, vomiting and abdominal pain. Genitourinary: Negative. Musculoskeletal: Negative. Negative for back pain. Skin: Negative. Neurological: Negative. Negative for dizziness, weakness, numbness and headaches. Hematological: Negative. Psychiatric/Behavioral: Negative. All other systems reviewed and are negative. Past Medical History Diagnosis Date ??? Asthma PSHx is negative Allergies Allergen Reactions ??? Ceclor (Cefaclor) History Substance Use Topics ??? Tobacco Use: Quit ??? Alcohol Use: Yes No family history on file. BP 129/77 Pulse 78 Temp(Src) 35 ??C (95 ??F) (Tympanic) Resp 16 SpO2 100% Physical Exam Nursing note and vitals reviewed. Constitutional: He is oriented. He appears well-developed and well-nourished. HENT: Head: Normocephalic and atraumatic. Eyes: Conjunctivae and extraocular motions are normal. Pupils are equal, round, and reactive to light. Neck: Normal range of motion. Neck supple. Cardiovascular: Normal rate, regular rhythm, normal heart sounds and intact distal pulses. Pulmonary/Chest: Effort normal and breath sounds normal. Abdominal: Soft. Bowel sounds are normal. Musculoskeletal: Normal range of motion. Neurological: He is alert and oriented. Skin: Skin is warm and dry. Psychiatric: He has a normal mood and affect. His behavior is normal. Thought content normal. Radiology orders: CHEST PA AND LATERAL CHEST PA AND LATERAL Final result not shown here.: EKG 12-LEAD ED Interpretation: EKG: Findings include: normal EKG, normal sinus rhythm, there are no previous tracings available for comparison. The study has been independently viewed by me. The study has been interpreted contemporaneously. The EKG appears to be a good tracing. Attending meat hanger not available for acute interpretation. Procedures ED Course: Patient discharged home and prescription written. Discharge Prescriptions New Prescriptions TRAMADOL (ULTRAM) 50 MG TABLET Take 1 Tab by mouth every 6 hours as needed for Pain. MDM Number of Diagnoses and Management Options Chest Pain: new, needed workup General comments: 5 Amount and/or Complexity of Data Reviewed Clinical lab tests: ordered and reviewed Tests in the radiology section of CPT??: ordered and reviewed Discussion of test results with the performing providers: yes Decide to obtain previous medical records or to obtain history from someone other than the patient:yes Obtain history from someone other than the patient: yes Review and summarize past medical records: yes Independent visualization of images, tracings, or specimens: yes Risk of Complications, Morbidity, and/or Mortality Presenting problems: high Diagnostic procedures: high Management options: high Patient Progress Patient progress: stable Encounter Diagnoses Code Name Primary? Qualifier ??? 786.50F Chest Pain PCP: MD PEÑALOZA 05/30/2009 10:53 PM * Meme Torres RN - 05/30/2009 1601 EST EKG done and shown to Dr Freedman documented in this encounter Miscellaneous Notes * Scanned Note-Null - Inpatient, Physician - 06/02/2009 1212 EST documented in this encounter Plan of Treatment Pending Results Name Type Priority Associated Diagnoses Date /Time EKG 12-LEAD ECG STAT 05/30/2009 16 :09 EST documented as of this encounter Procedures Procedure Name Priority Date/Time Associated Diagnosis Comments ECG REPORT - SCANNED 06/25/2009 11:33 EST CHEST PA AND LATERAL STAT 05/30/2009 16:50 EST EKG 12-LEAD STAT 05/30/2009 16:09 EST documented in this encounter Results * ECG REPORT - SCANNED (06/25/2009 11:33 EST) 06/25/2009 11:3 3 EST Narrative 06/25/2009 15:30 EST Ordered by an unspecified provider. Transcriptions Inpatient, Physician - 06/25/2009 11:33 EST Physician Inpatient MD PROCEDURE/MINOR S URGICAL ORDERABLES * CHEST PA AND LATERAL (05/30/2009 16:50 EST) Anatomical Region Laterality Modality Other 05/30/2009 16:5 0 EST 05/30/2009 16:57 EST Narrative 05/30/2009 16:57 EST CHEST PA AND LAT ??May 30, 2009 04:50:00 PM Clinical history/Comments: CHEST PAIN, left sided. Comparison: None. Findings: The bones and surrounding soft tissues show no abnormality. The pulmonary vasculature and cardiomediastinal contours are within normal limits. The lungs are clear and there is no pleural effusion or pneumothorax. Impression: Normal chest. I have personally reviewed the images and the above interpretation and agree with the findings. Procedure Note Flaquito Byrd MD / Flaquito Byrd MD / Flaquito Byrd MD - 05/30/2009 CHEST PA AND LAT May 30, 2009 04:50:00 PM Clinical history/Comments: CHEST PAIN, left sided. Comparison: None. Findings: The bones and surrounding soft tissues show no abnormality. The pulmonary vasculature and cardiomediastinal contours are within normal limits. The lungs are clear and there is no pleural effusion or pneumothorax. Impression: Normal chest. I have personally reviewed the images and the above interpretation and agree with the findings. Tucker Sosa MD IMG DIAGNOSTIC IMAGI NG ORDERABLES documented in this encounter Visit Diagnoses Diagnosis Chest pain Chest pain, unspecified documented in this encounter Administered Medications Inactive Administered Medications - up to 3 most recent administrations Medication Order MAR Action Action Date Dose Rate Site tramadol (ULTRAM) tablet 50 mg 50 mg, oral, EVERY 6 HOURS PRN, Starting on Lavonne 05/30/09 at 1608, Until Lavonne 05/30/09 at 1924, Pain, STAT Given 05/30/2009 16:27 EST 50 mg documented in this encounter Historical Medications * This list may reflect changes made after this encounter. Medication Sig Dispensed Refills Start Date End Date fluticasone-salmeterol (ADVAIR) 100-50 mcg/Dose diskus inhaler Inhale 1 Puff as directed every 12 hours. fexofenadine (WENDI) 60 mg tablet Take 60 mg by mouth daily. 02/09/2011 montelukast (SINGULAIR) 10 mg tablet Take 10 mg by mouth daily. 09/13/2009 added in this encounter Active and Recently Administered Medications Times are shown in EST. PRN Medication Order 05/28/2009 05/29/2009 05/30/2009 tramadol (ULTRAM) tablet 50 mg (CANCELED) 50 mg, oral, EVERY 6 HOURS PRN, Starting on Lavonen 05/30/09 at 1608, Until Lavonne 05/30/09 at 1924, Pain, STAT 1627 (Given - Provid er: Magnus Denton RN) documented in this encounter Orders Nursing Count Last Ordered Date First Orde red Date PULSE OXIMETRY 1 05/30/2009 documented in this encounter Care Teams Agronomy Advisor Relationship Specialty Start Date End Date None, Provider PCP - General 05/30/09 02/08/11 documented as of this encounter
--- OUTSIDE RECORDS SUMMARY | 2024-02-14 18:19 | XMS_ITS | Encounter Summary ---
Author Organization [facility] Address [address] [place] [address] Care Team Providers Care Senior Billing Consultant Name Role Phone Gilberto Jacome MD Primary Care Provider [phone] Geetha Lowe APRN Primary Care Provider [phone] Encounter Details Date Type Department Care Team (Late st Contact Info) Description 01/11/2020 Lab Requisition [facility] Pathology & Laboratory Medicine - [facility] [address] [place] [address] Leigh Robles, DO [address] [place], [place] [id number] Gastro-esophageal reflux disease without esophagitis; Unspecified asthma, uncomplicated Social History Tobacco Use Types Packs/Day Years [...] Procedure Name Priority Date/Time Associated Diagnosis Comments SURGICAL PATHOLOGY Today 01/11/2020 9: 56 EDT Gastro-esophageal reflux disease without esophagitis Unspecified asthma, uncomplicated documented in this encounter Results * SURGICAL PATHOLOGY (01/11/2020 9:56 EDT) Final Diagnosis A. DUODENAL BULB, BIOPSY: - Duodenal bulb with no significant diagnostic abnormalities. B. STOMACH, ANTRUM, BIOPSY: - Gastric antral and pyloric channel (gastro-duodenal) mucosa with mild reactive (chemical) gastropathy. - Negative for Helicobacter pylori microorganisms on H&E stained sections. C. STOMACH, GREATER CURVE, BIOPSY: - Gastric fundic mucosa with no significant diagnostic abnormalities. - Negative for Helicobacter pylori microorganisms on H&E stained sections. D. GASTROESOPHAGEAL JUNCTION, BIOPSY: - Squamous mucosa with reflux esophagitis. E. ESOPHAGUS, DISTAL, BIOPSY: - Squamous mucosa with mild reactive changes. 01/15/2020 9:31 [facility] at 0931 Attestation There was significant resident/fellow involvement in the diagnostic evaluation of this case. By the signature below, the attending physician certifies that they have personally conducted a gross and/or microscopic examination of the described specimens and rendered or confirmed the above diagnosis. 01/15/2020 9:31 [facility] at 0931 Clinical History Chronic GERD 01/15/2020 9:31 [facility] Gross Description A. Received in formalin labelled with proper patient identification (initials R, C) and duodenal bulb bx is a single arriaga-brown tissue (0.5 x 0.3 x 0.1 cm). Submitted entirely in A1. B. Received in formalin labelled with proper patient identification (initials R, C) and antrum bx is a single arriaga-brown tissue (0.4 x 0.3 x 0.1 cm). Submitted entirely in B1. C. Received in formalin labelled with proper patient identification (initials R, C) and greater curve bx is a single arriaga-brown tissue (0.8 x 0.2 x 0.1 cm). Submitted entirely in C1. D. Received in formalin labelled with proper patient identification (initials R, C) and GE junction bx is a single arriaga-white tissue (0.4 x 0.2 x 0.2 cm). Submitted entirely in D1. E. Received in formalin labelled with proper patient identification (initials R, C) and distal esophagus bx is a single arriaga-white tissue (0.4 x 0.2 x 0.1 cm). Submitted entirely in E1. Satish Simpson 01/11/2020 17:29 01/15/2020 9:31 EDT [facility] Resident/Pierce w: Joel Jha MD 01/15/2020 9:31 EDT [facility] Scanned Images 01/15/2020 9:31 EDT [facility] Tissue ENTIRE ESOPHAGUS / Unknown 01/11/2020 9:56 EDT 01/11/2020 16:06 EDT Tissue specimen (specimen) PYLORIC ANTRUM STRUCTURE / Unknown 01/11/2020 9:56 EDT 01/11/2020 16:06 EDT Tissue specimen (specimen) SPECIMEN FROM STOMACH OBTAINED BY TOTAL GASTRECTOMY / Unknown 01/11/2020 9:56 EDT 01/11/2020 16:06 EDT Tissue specimen (specimen) CARDIOESOPHAGEAL JUNCTION STRUCTURE / Unknown 01/11/2020 9:56 EDT 01/11/2020 16:06 EDT Tissue specimen (specimen) ESOPHAGEAL STRUCTURE / Unknown 01/11/2020 9:56 EDT 01/11/2020 16:06 EDT Leigh Robles DO PATHOLOGY ORDERABLES Performing Organization Address City/State/[facility] Co de Phone Number [facility] [address] [place] [address] documented in this encounter Visit Diagnoses Diagnosis Gastro-esophageal reflux disease without esophagitis Esophageal reflux Unspecified asthma, uncomplicated documented in this encounter Care Teams Senior Billing Consultant Relationship Specialty Start Date End Date Gilberto Jacome MD [address] [place] [address] PCP - General 02/25/11 04/10/21 Geetha Lowe APRN [address] [facility] [address] [place] [id number] PCP - General 04/11/21 documented as of this encounter
--- OUTSIDE RECORDS SUMMARY | 2024-02-14 18:19 | XMS_ITS | Encounter Summary ---
Author Organization [facility] Address [facility] [place] [address] Care Team Providers Care Wildlife Biostation Research Ecologist Name Role Phone MynorAnnetta kuhnhrdouglas Warner ROB Primary Care Provider [phone] Reason for Visit * Reason Comments Dermatitis Encounter Details Date Type Department Care Team (Late st Contact Info) Description 03/07/2015 3:30 PM EDT Office Visit Dermatology at [address] [place] [id number] Brendan Marcus MD [address], [place] [address] Tinea pedis of both feet; Tinea unguium Discharge Disposition: Home Social History Tobacco Use Types Packs/Day Years Used Date Smoking Tobacco: Never Sex and Gender Information Value Date Recorded Sex Assigned at Not on file Gender Identity Not on file Sexual Orientation Not on file documented as of this encounter Patient Instructions * Patient Instructions* Amalia Bergman LPN - 03/07/2015 3:44 PM EDT Images from the original note were not included. [facility] Dermatitis: After Your Visit Your Care Instructions Dermatitis is the general name used for any rash or inflammation of the skin. Different kinds of dermatitis cause different kinds of rashes. Common causes of a rash include new medicines, plants (such as poison oak or poison keo), heat, stress, and allergies to soaps, cosmetics, detergents, chemicals, and fabrics. Certain illnesses can also cause a rash. Unless caused by an infection, these rashes cannot be spread from person to person. How long your rash will last depends on what caused it. Rashes may last a few days or months. Follow-up care is a zimmerman part of your treatment and safety. Be sure to make and go to all appointments, and call your doctor if you are having problems. It???s also a good idea to know your test results and keep a list of the medicines you take. How can you care for yourself at home? ?? Do not scratch. Cut your nails short, and file them smooth. Or you may wear gloves if this helpskeep you from scratching. ?? If you use soap on the rash, choose a gentle soap and use as little as possible. ?? Put cold, wet cloths on the rash to reduce itching. ?? Keep cool, and stay out of the sun. Heat makes itching worse. ?? Leave the rash open to the air when you can. If your clothes have to cover the rash, wear cottonor silk. ?? If the rash itches, use hydrocortisone cream. Follow the directions on the label. Calamine lotion may help for plant rashes. ?? Try an xibl-igk-ukgrvec antihistamine such as diphenhydramine (Benadryl) or chlorpheniramine (Chlor-Trimeton). Follow the directions on the label. ?? If you get a prescription steroid cream or pills, use them as directed. When should you call for help? Call your doctor now or seek immediate medical care if: ?? You have signs of infection, such as: ?? Increased pain, swelling, warmth, or redness. ?? Red streaks leading from the rash. ?? Pus draining from the rash. ?? A fever. ?? You have joint pain along with the rash. ?? The rash gets worse or spreads to other parts of your body. Watch closely for changes in your health, and be sure to contact your doctor if: ?? You do not get better after 2 to 3 weeks of home treatment. Where can you learn more? Visit our health information library at [email or web address] You can also view health information on [employer], your personal patient account. Log in or sign up today. Enter F270 in the search box to learn more about Dermatitis: After Your Visit. ?? [phone] [employer]. Care instructions adapted under license by [facility]. This care instruction is for use with your licensed healthcare professional. If you have questions about a medical condition or this instruction, always ask your healthcare professional. [employer] disclaims any warranty or liability for your use of this information. Content Version: 10.4.513598; Current as of: August 30, 2013 documented in this encounter Progress Notes * Brendan Marcus MD - 03/07/2015 5:44 PM EDT Problem: Toenail and fingernail dystrophy. 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 He had been treated with numerous topicals over the years, but nothing has really worked. He has also had dermatitis on the soles of his feet, for which he uses clotrimazole cream with some temporary benefit. Whenever he stops the cream, however, the rash recurs. He also has occasional dryness and scaling in his scalp and some patchy redness of his face. He is not aware of any family history of psoriasis. He is not aware of any family history of similar nail problems. The patient is seen in consultation for Geetha Lowe. Physical examination reveals distal onycholysis and subungual hyperkeratotic debris consistent with tinea unguium of all 10 of his toenails and affected fingernails of the left first and second and the right second fingernails. He has GUSTAVO positive scaling taken from the sole of his left foot where he has dry, erythematous patching areas on both soles, sparing the toe web spaces and sparing the dorsum of the feet. He does have mild seborrheic dermatitis of his scalp extending to the hairline, today not involving his ears and not involving eyebrows or face. The patient has no evidence of tinea manuum today. He has no scaling, no peeling, no rash on the palmar hands or dorsum of his hands, either. Assessment and Plan: 1. Tinea unguium and tinea pedis. a. Did not discuss two-foot, one-hand disease, but discussed the need for a good oral course of therapy to try and clear this for him. b. I suspect that he will require prophylactic therapy with clotrimazole cream for his feet on a once weekly basis following oral therapies to try and slow down and hopefully prevent recurrence of tinea unguium. He can obtain the clotrimazole cream over the counter. c. Recommend that the patient begin terbinafine 250 mg, one p.o. q.day; #30 dispensed with zero refills. Takes for a month, then towards the end of the course obtain AST and ALT. If normal, we will call in the next month's refill to [facility]. We will repeat this for a total of three months. Discussed benefits and side effects of terbinafine. Answered patient's questions. He has read a little bit about it. d. Discussed with patient that he will need then to wait five months beyond the end of therapy, a total of eight months from today, to see the final result. I would like to see him back in eight months to check on his progress with this therapy. e. As aforementioned, when he completes the first three months of oral therapy, then begin clotrimazole cream on a once weekly basis to the soles of the feet. 2. Seborrheic dermatitis, facial. a. Reassured him this is not related to tinea pedis. b. Recommend that he begin ketoconazole shampoo, 2%, using this on a daily basis for two weeks, and then switch with his regular Head and Shoulders. Go back and forth between the two every two weeks. c. For facial involvement use ketoconazole 2% cream, apply to affected red patchy areas on face when these occur; 30 grams of the 2% cream given with five refills. On the ketoconazole 2% shampoo, it was 120 mL with five refills. Return to clinic in eight months for repeat check. COPY: Meg Jones documented in this encounter Plan of Treatment Not on file documented as of this encounter Visit Diagnoses Diagnosis Tinea pedis of both feet Tinea unguium Dermatophytosis of nail documented in this encounter Care Teams Wildlife Biostation Research Ecologist Relationship Specialty Start Date End Date Geetha Lowe APRN [address] [place] [address] PCP - General 10/16/14 documented as of this encounter
--- OUTSIDE RECORDS SUMMARY | 2024-02-14 18:19 | XMS_ITS | Data Portability ---
Author Organization [facility] [place] [address] Care Team Providers Care Locomotive Mechanic Name Role Phone [facility] Dentist Assessment Encounter Date Assessment Date Assessment LastModified by Organization Details LastModified Time 12/28/2023 12/28/2023 Flu vaccine: current Comirnaty: current Td: current due 2027 PCV20: provide today. PPSV23 in 2018. Follow-up in 6 Months. Call or RTO sooner if needs arise. Not available 12/28/2023 15:52:46 Plan of Treatment Reminders Order Date Submit Date Provider Last Modified By Organization Details Last Modified Time Details Appointments Procedure 40 2023 01:30P M Not available Not available Not available Nurse Visit 30 2023 12:00P M Not available Not available Not available Office Visit 2024 02:30P M Not available Not available Not available Lab HbA1c (hemoglob in A1c), blood 2023 024 [facility] (Registration ), [address] [place] [address] [place], [address], 01/03/2024 11:18:33 lipid panel, serum 2023 024 [facility] (Registration ), [address] [place] [address] [place], [address], 01/03/2024 11:18:44 Referral None recorded. Procedures None recorded. Surgeries None recorded. Imaging None recorded. Medication Orders Valtrex 1 gram tablet 2023 024 [facility] [address] [place], [address], 12/28/2023 14:33:52 gabapenti n 300 mg capsule 2023 024 [facility], [address] [place], [address], 12/28/2023 14:33:35 Patient TargetsNo targets recorded. Patient Instructions Encounter Date Encounter Id Patient Instructions Last Modified By Organization Details Last Modified Time 12/28/2023 [id number] starting a weigh t loss plan: care instructions Not available 12/28/2023 15:01:54 diet [email or web address] Not available 2023 15:01:54 exercise [email or web address] Not available 2023 15:01:54 Reason for Referral None Reported. Results Created Date Observation Date Name Description Value Unit Range Abnormal Flag LastModifiedBy Organization Detail LastModifiedTime 12/28/19 24 12/28/2023 HEMOG LOBIN A1C hemoglobin A1C 5.4 % <5.7 Not Available [facility] (Registration ) [address] [place] [address] [place], [address], 12/28/2023 21:46:45 12/28/19 24 12/28/2023 LIPID 2 cholesterol 197 mg/dL <200 Not Available [facility] (Registration ) [address] [place] [address] [place], [address], 12/28/2023 21:48:44 12/28/19 24 12/28/2023 LIPID 2 triglyceride 198 mg/dL <150 high Not Available [facility] (Registration ) [address] [place] [address] [place], [address], 12/28/2023 21:48:44 12/28/19 24 12/28/2023 LIPID 2 HDL cholesterol 59 mg/dL 40-60 Not Available [facility] (Registration ) [address] [place] [address] [place], [address], 12/28/2023 21:48:44 12/28/19 24 12/28/2023 LIPID 2 calculated LDL 99 mg/dL <100 Not Available [facility] (Registration ) [address] [place] [address] [place], [address], 12/28/2023 21:48:44 Result Notes None recorded. Problems Name Status Onset Date Resolution Date Notes Provider Name and Address Organization Details Recorded Time Uncomplicated mild persistent asthma Active 201411/04/2020 - Comments only - Geetha Weiner APRN - with allergic. Stable. continue medication regimen. Problem Code: J45.30; Problem Code Type: ICD-10; Not Available [facility] 3 05:31:44 Allergic rhinitis Active 201406/06/2021 - Comments only - Geetha Weiner APRN - Struggling with. Continue zyrtec and singulair. Claritin not effective for him in the past. Flonase less effective. Trial dymista BID. Saline sprays, salt water gargles. Refer to command and control systems integrator for testing. Problem Code: J30.9; Problem Code Type: ICD-10; Not Available [facility] 3 05:31:45 Bilateral hearing loss Active 201701/10/2018 - Comments only - Jesika KEYESP - - Disucssed audiology referral. We did not come to a decision regarding whether or not he wants the referral. Will have coordinator reach out in a couple of days to see if he wants this referral or not Problem Code: H91.93; Problem Code Type: ICD-10; Not Available [facility] 3 05:31:45 Anxiety Active 201906/06/2021 - Comments only - Geetha Weiner APRN - OCD. Improving. Encouraged continued counseling, he is in transition to find a new counselor. Currently doing sertraline 100mg, will increase to 150mg once a day. Ativan for 1 more month at 10 tabs/ month then look at alternatives for anxiety. Does not tolerate hydroxyzine, s/e. Consider NAC, propranolol or buspar. Problem Code: F41.8; Problem Code Type: ICD-10; Not Available [facility] 3 05:31:45 Obsessive compulsive personality disorder Active 2020 Problem Code: F60.5; Problem Code Type: ICD-10; Not Available [facility] 3 05:31:45 Snoring Active 202008/05/2020 - Comments only - Geetha Weiner ROB - Witnessed apnea per his girlfriend. Refer to sleep clinic. Problem Code: R06.83; Problem Code Type: ICD-10; Not Available [facility] 3 05:31:45 Nonulcer dyspepsia Active 202011/04/2020 - Comments only - Geetha Hensleybam TAYLORN - Stable. continue medication. Continue to work diet mgmt. Check mag, B12 and BMP. Problem Code: K30; Problem Code Type: ICD-10; Not Available [facility] 3 05:31:45 Obesity Active 2020 Problem Code: E66.9; Problem Code Type: ICD-10; Not Available [facility] 3 05:31:45 Hand pain Active 202006/06/2021 - Comments only - Geetha Hensleybam RIVAS - differentials include r/t COVID19, MAB infusion, autoimmune conditions. Unlikely OA r/t age. Diet in origin. Monitor for now. Encouraged gluten free diet for short duration. Introduce tumeric in diet as desires. If not improving consider checking TSH with R, YANI, ESR, CRP, anti-CCP and RF. Problem Code: M79.643; Problem Code Type: ICD-10; Not Available [facility] 3 05:31:45 Headache Active 2021 Problem Code: R51.9; Problem Code Type: ICD-10; Not Available [facility] 3 05:31:45 Herpes zoster Active 2022 Problem Code: B02.9; Problem Code Type: ICD-10; Not Available [facility] 3 05:31:46 Ingrowing nail Completed 201802/11/2023 Problem Code: L60.0; Problem Code Type: ICD-10; Not Available [facility] 3 05:31:46 Counseling Completed 202002/11/2023 Problem Code: Z71.89; Problem Code Type: ICD-10; Not Available [facility] 3 05:31:46 Asthma Completed 201403/17/2023 Not Available [facility] 3 05:31:46 Acute pharyngitis Completed 202102/11/2023 Problem Code: J02.9; Problem Code Type: ICD-10; Not Available [facility] 3 05:31:46 Low back pain Completed 202009/12/2021 Problem Code: M54.5; Problem Code Type: ICD-10; Not Available [facility] 3 05:31:46 Generalized hyperhidrosis Completed 202001/30/2021 Problem Code: R61; Problem Code Type: ICD-10; Not Available [facility] 3 05:31:46 History of SARS-CoV-2 Completed 202002/11/2023 Problem Code: Z86.16; Problem Code Type: ICD-10; Not Available [facility] 3 05:31:46 Bleeding from nose Completed 201601/30/2021 Problem Code: R04.0; Problem Code Type: ICD-10; Not Available [facility] 3 05:31:47 Increased frequency of urination Completed 201901/30/2021 Problem Code: R35.0; Problem Code Type: ICD-10; Not Available [facility] 3 05:31:47 History and physical examination, administrativ e Completed 201410/27/2016 Problem Code: Z02.89; Problem Code Type: ICD-10; Not Available [facility] 3 05:31:47 Chest pain Completed 201901/30/2021 Problem Code: R07.89; Problem Code Type: ICD-10; Not Available [facility] 3 05:31:47 Hand pain Active [address], [place], [address] , [facility] 4 05:32:27 Skin lesion Active [address], [place], [address] , [facility] 4 14:41:56 Problem Notes None recorded. Procedures Surgical History Date Name Laterality Status Provider Name and Address Organization Details Recorded Time 02/14/2024 Punch Biopsy completed [address], [place], [address], [facility] 02/14/2024 14:08:08 Imaging Results None recorded. Procedure Notes None recorded. Medical Equipment None Reported. Allergies Allergen ID Allergen Name Allergen Category Reaction Reaction Severity Criticality Documentation Date Start Date Code Code System Note Provider Name and Address Organization Details Recorded Time 94347 Ceclor medicatio n hives Not available Not available 04/30/2023201463 5 RxNorm Mirella Andrews RN [facility], [facility] 4 17:37:43 Medications Name Sig [...] height Body mass index (BMI) Body weight Respiratory rate Oxygen saturation Oxygen saturation in Arterial blood by Pulse oximetry Heart rate Body temperature Systolic blood pressure Diastolic blood pressure Provider Name and Address Organization Details Last Updated DateTime 4 165.862 cm 27.9 kg/m2 45827.1 1 g 18 /min 96 % 96 % 73 /min 97.5 [degF] 130 mm[Hg] 82 mm[Hg] Mirella Andrews RN [facility] 4 17:37:32 Date Recorded Body height Body mass index (BMI) Body weight Body temperature Oxygen saturation Oxygen saturation in Arterial blood by Pulse oximetry Heart rate Systolic blood pressure Diastolic blood pressure Provider Name and Address Organization Details Last Updated DateTime 4 165.862 cm 29.2 kg/m2 55319.5 5 g 99.2 [degF] 96 % 96 % 81 /min 112 mm[Hg] 78 mm[Hg] ANA MARIA ROBERTS CMA [facility], [facility] 4 14:35:36 Date Recorded Body height Body mass index (BMI) Body weight Body temperature Oxygen saturation Oxygen saturation in Arterial blood by Pulse oximetry Heart rate Systolic blood pressure Diastolic blood pressure Provider Name and Address Organization Details Last Updated DateTime 4 165.862 cm 27.8 kg/m2 20160.6 2 g 100.1 [degF] 96 % 96 % 68 /min 126 mm[Hg] 90 mm[Hg] ANA MARIA ROBERTS CMA [facility] 13:34:14 Social History Question Answer Notes LastModified by Organizat ion Details LastModified Time Tobacco Smoking Status Never Smoker Mirella Andrews RN [facility], [facility] 08/04/2023 17:39:01 What Was The [...] Details Recorded Time Pneumococcal conjugate PCV20, polysaccharide [id number] conjugate, adjuvant, PF 12/28/2023 completed GEETHA WEINER, ROB [address], [place], [address], [facility] 12/28/2023 15:52:29 Tdap 01/10/2018 completed Not Available [facility] 06:14:30 Influenza, split virus, trivalent, preservative 10/27/2016 completed Not Available [facility] 04/30/2023 06:14:31 Influenza, split virus, quadrivalent, PF 03/12/2021 completed Not Available [facility] 04/30/2023 06:14:31 Influenza, split virus, quadrivalent, PF 03/13/2022 completed Not Available [facility] 04/30/2023 06:14:31 Influenza, split virus, quadrivalent, PF 04/24/2019 completed Not Available [facility] 04/30/2023 06:14:31 Influenza, split virus, quadrivalent, preservative 06/22/2018 completed Not Available [facility] 04/30/2023 06:14:31 COVID-19, mRNA, LNP-S, PF, 100 mcg/0.5mL dose or 50 mcg/0.25mL dose 07/15/2021 completed Not Available [facility] 04/30/2023 06:14:31 COVID-19 vaccine, vector-nr, rS-Ad26, PF, 0.5 mL 09/07/2020 completed Not Available [facility] 04/30/2023 06:14:31 SARS-COV-2 (COVID-19) vaccine, UNSPECIFIED 02/25/2022 completed Not Available [facility] 04/30/2023 06:14:31 pneumococcal polysaccharide PPV23 01/10/2018 completed Not Available [facility] 2022 06:14:31 COVID-19, mRNA, LNP-S, PF, 100 mcg/0.5mL dose or 50 mcg/0.25mL dose 03/08/2023 completed ASHLEY Khoury, [facility] 08/04/2023 17:31:18 influenza, unspecified formulation 03/05/2023 completed ASHLEY Khoury, [facility] 08/04/2023 17:31:27 Past Encounters Encounter ID Performer Location Encounter Start Date Encounter Closed Date Diagnosis/Indication Diagnosis SNOMED-CT Code [id number] DEVON TOSCANO [address] [place] [address] 08/04/2023 17:22:32 08/04/2023 18:17:14 History of herpes zoster [id number] GEETHA WEINER [address] [address] 12/28/2023 14:23:55 12/28/2023 15:12:12 Anxiety 90782195 Uncomplica carlito mild persistent asthma 558851557 Obesity 993828031 Nonulcer dyspepsia 98659 07 Hand pain 06520190 Snoring 82975378 Skin lesion 85869064 Active or passive immunization 708445422 [id number] GEETHA WEINER APRN [facility] [address] [place] [address] 02/14/2024 13:11:56 02/14/2024 14:15:00 Skin lesion 22161560 Health Concerns Section Related Observation LastModified by Organization Detai ls LastModified Time None Recorded Concern Status LastModified by Organization Details LastModified Time None Recorded Advance Directives Directive None Recorded Payers Encounter Date Sequence Insurance Name Policy Number Policy Rocha Covered Member ID Rocha Member ID Guarantor Name 08/04/2023 1 [place] [facility] [id number] [employer] T Dominog Rene [id number] [employer] T Domingo Rene 12/28/2023 1 [place] [facility] [id number] [address] Anju [id number] Adventist T Domingo Rene 02/14/2024 1 [place] [facility] [id number] Sacha Rene [id number] Sacha Rene Notes Date Note Type Note Provider Name and Address Organization Details Recorded Time 08/04/2023 text/html HPI Notes: Patie nt with onset of symptoms yesterday, with L arm tingling, with a patch of skin to L forearm that feels sensitive, with occasional shooting pain in to L hand, and L upper arm muscles feel sore, like I pulled it. Cannot identify any injury or trauma to L arm that would have caused these symptoms. Patient with R shingles outbreak 01/2023, with painful vesicular rash. He did start antivirals on day 4-5 of symptoms (with rash appearing on day 4), but had fairly severe neuralgia that lasted for several weeks. He is concerned that these symptoms are very similar to that previous zoster episode, and would like to prevent No recent rhinitis, fevers, cough. He does report feeling run down more recently. DEVON TOSCANO, ALISTAIR [address], [place], [address], [facility], [facility]. 08/04/2023 18:43:31 12/28/2023 text/html HPI Notes: Is he re [...] pain. no longer needing tumeric. -- update 7.9.24. it is ok.: not having any. Snoring. has not complained of any recent snoring or apnea. Headache. Takes meds as needed. GEETHA WEINER APRN [address], [place], [address], [facility], [facility]. 12/28/2023 15:52:59 02/14/2024 text/html HPI Notes: Is in today for skin lesion removal: X2 to right upper arm. Punch biopsy. GEETHA WEINER APRN [address], [place], [address], [facility]. 02/14/2024 15:39:06
--- OUTSIDE RECORDS SUMMARY | 2024-02-14 18:19 | XMS_ITS | Clinical Summary ---
Author Organization [facility] Address [address] [place] [address] Care Team Providers Care Slab Depiler Operator Name Role Phone MynorAnnetta kuhnquentin Warner APRN Primary Care Provider [phone] Allergies Active Allergy Reactions Criticality Noted Date Comments Cefaclor 05/30/2009 Medications Medication Sig Dispensed Refills Start Date End Date Status fluticasone-salmetero l (ADVAIR) 100-50 mcg/Dose diskus inhaler Inhale 1 Puff as directed every 12 hours. Active ALBUTEROL INHL Inhale as directed as needed. 02/09/2011 Active Surgical History Surgery Date Site/Laterality Comments HERNIA REPAIR 2006 Medical History Medical History Date Comments Asthma Environmental allergies Social History Tobacco Use Types Packs/Day Years [...] 18:27 EDT Sexual Orientation Not on file Obstetrics History Last Filed Vital Signs Vital Sign Reading Time Taken Comments Blood Pressure 122/69 04/13/2021 1553 EDT Pulse 77 09/13/2009 1300 EDT Temperature 36.6 ??C (97.9 ??F) 04/13/2021 1553 EDT Respiratory Rate 18 04/13/2021 1553 EDT Oxygen Saturation 100% 04/13/2021 1553 EDT Inhaled Oxygen Concentration - - Weight 56.7 kg (125 lb) 02/09/2011 1029 EDT Height 165.1 cm (5' 5) 02/09/2011 1029 EDT Body Mass Index 20.8 02/09/2011 1029 EDT Plan of Treatment Health Maintenance Due Date Last Done Comments Hepatitis C Screen 1990 Hepatitis B Vaccine (1 of 3 - 19+ 3-dose series) 04/29 COVID-19 Vaccine (2022- season) 2023 Insurance Payer Benefit Plan / Group Subscriber ID Effective Dates Phone Address Type [facility] [employer] [id number] 2018-Prese nt [address] [place] [address] [facility] Care Teams Slab Depiler Operator Relationship Specialty Start Date End Date Geetha Lowe APRN [address] [place] [phone] [facility] - General 04/11/21
--- OUTSIDE RECORDS SUMMARY | 2024-02-14 18:19 | XMS_ITS | Referral Summary ---
Author Organization [facility] Address [address] [place] [address] Care Team Providers Care Ms Sql Server Developer Name Role Phone Geetha Lowe APRN Primary Care Provider [phone] Allergies Active Allergy Reactions Criticality Noted Date Comments Cefaclor 05/30/2009 Medications Medication Sig Dispensed Refills Start Date End Date Status fluticasone-salmetero l (ADVAIR) 100-50 mcg/Dose diskus inhaler Inhale 1 Puff as directed every 12 hours. Active ALBUTEROL INHL Inhale as directed as needed. 02/09/2011 Active Social History Tobacco Use Types Packs/Day Years [...] 18:27 EDT Sexual Orientation Not on file Last Filed Vital Signs Vital Sign Reading [...] 20.8 02/09/2011 1029 EDT Plan of Treatment Not on file Care Teams Ms Sql Server Developer Relationship Specialty Start Date End Date Geetha Lowe APRN [address] [place] [id number] PCP - General 04/11/21
--- OUTSIDE RECORDS SUMMARY | 2024-02-14 18:19 | XMS_ITS | Encounter Summary ---
Author Organization [facility] Address [address] [place] [address] Care Team Providers Care Consulting Actuary Name Role Phone None, Provider Primary Care Provider Unavailabl e Reason for Visit * Reason Comments Groin Pain Pt to emergency depa rtment with left testicular pain. States that he was seen by his urologist several weeks ago for same. States that the pain has persisted/gotten worse. Rates pain as 01/28. Encounter Details Date Type Department Care Team (Late st Contact Info) Description 09/13/2009 12:54 EDT - 09/13/2009 14:01 EDT Emergency [facility] Emergency Department - [facility] [address] [place] [address] Deepak Colbert MD Emergency, MD Trace Testicular pain Discharge Disposition: Home or Self Care Social [...] Sign Reading Time Taken Comments Blood Pressure 134/63 09/13/2009 1300 EDT Pulse 77 09/13/2009 1300 EDT Temperature 34.6 ??C (94.3 ??F) 09/13/2009 1300 EDT Respiratory Rate 16 09/13/2009 1300 EDT Oxygen Saturation 99% 09/13/2009 1300 EDT Inhaled Oxygen Concentration - - Weight - - Height - - Body Mass Index - - documented in this encounter Discharge Instructions * Discharge Instructions* Deepak Colbert MD - 09/13/2009 13:52 EDT Follow-up with Dr Kelley Wednesday if no improvement. Return if symptoms worsen documented in this encounter Medications at Time [...] documented in this encounter ED Notes * Deepak Colbert MD - 09/13/2009 1353 EDT DOS: 09/13/2009 Chief Complaint Patient presents with ??? Groin Pain Pt to emergency department with left testicular pain. States that he was seen by his urologist several weeks ago for same. States that the pain has persisted/gotten worse. Rates pain as 810. The patient is a 19 y.o. male who presents today with Groin Pain The history is provided by the patient. Groin Pain This is a new problem. The current episode started 3 to 5 days ago. The onset was gradual. The problem occurs continuously. The problem has been gradually worsening. The problem affects the left side.There is no reported injury. The pain is moderate. The symptoms are relieved by rest. Nothing worsens the symptoms. Pertinent negatives include no anorexia, no chills, no fever, no abdominal pain, nonausea, no vomiting, no discolored urine, no dysuria, no frequency, no genital lesions, no hematuria, no hesitancy, no penile discharge, no penile pain, no urgency, no urinary burning and no flank pain. He is experiencing no difficulties urinating. He is sexually active. He has 1 sexual partner. Henever uses condoms. Seen by Dr Kelley earlier this week for L testicular pain--normal exam per Dr eKlley's note. Pain nowworse. Review of Systems Constitutional: Negative for fever and chills. Gastrointestinal: Negative for nausea, vomiting and abdominal pain. Genitourinary: Negative for dysuria, hesitancy, urgency, frequency, hematuria, flank pain, penile pain and penile discharge. Past Medical History Diagnosis Date ??? Asthma History reviewed. No pertinent past surgical history. Allergies Allergen Reactions ??? Ceclor (Cefaclor) History Substance Use Topics ??? Tobacco Use: Quit ??? Alcohol Use: Yes History reviewed. No pertinent family history. BP 134/63 Pulse 77 Temp(Src) 34.6 ??C (94.3 ??F) (Tympanic) Resp 16 SpO2 99% Physical Exam Nursing note and vitals reviewed. Constitutional: He is oriented. He appears well-developed and well-nourished. No distress. Abdominal: Soft. No tenderness. Hernia confirmed negative in the left inguinal area. Genitourinary: Penis normal. Right testis shows mass (spermatocele). Right testis shows no swelling, no tenderness. Left testis shows no mass, no swelling, no tenderness. Lymphadenopathy: Left: No inguinal adenopathy present. Neurological: He is alert and oriented. Skin: Skin is warm and dry. No rash noted. Psychiatric: He has a normal mood and affect. Radiology orders: None Procedures ED Course: Completely normal L testicle exam. No swelling, tenderness, erythema. Epididymis normal. Patient reassured. To follow-up with Dr Kelley next week if pain persists. Discharge Prescriptions New Prescriptions No Discharge Prescriptions for this patient MDM Number of Diagnoses and Management Options Testicular pain: new, needed workup General comments: 3 Encounter Diagnoses Code Name Primary? Qualifier ??? 608.9X Testicular pain PCP: MD PEÑALOZA 09/13/2009 1:53 PM documented in this encounter Miscellaneous Notes * Scanned Note-Null - Inpatient, Physician - 09/15/2009 1204 EDT documented in this encounter Plan of Treatment Not on file documented as of this encounter Visit Diagnoses Diagnosis Testicular pain Unspecified disorder of male genital organs documented in this encounter Discontinued Medications Medication Sig Discontinue Reason Start Date End Da te montelukast (SINGULAIR) 10 mg tablet Take 10 mg by mouth daily. Error 09/13/2009 tramadol (ULTRAM) 50 mg tablet Take 1 Tab by mouth every 6 hours as needed for Pain. Error 05/30/2009 09/13/2009 documented as of this encounter Care Teams Consulting Actuary Relationship Specialty Start Date End Date None, Provider PCP - General 05/30/09 02/08/11 documented as of this encounter
== END 2024-02-14 18:15 | disposition home or self-care (01) ==
LOC: NCHCN 18:14
PROVIDERS: PCP Nurse Practitioner Family; Visit Provider Nurse Practitioner Family
DX: D23.61 Other benign neoplasm of skin of right upper limb, including shoulder (principal)
CPT/HCPCS: 88305